=== PATIENT | female | born 1940 | race Caucasian/White ===

== ENCOUNTER 2016-10-14 07:29 | Inpatient (IN) | payer MEDICARE, BC ==
[2016-10-14] MEDS ORDERED: NORMAL SALINE 1000 ML 1,000 ML IV ONE ×2 (07:49→10:56)
[2016-10-14] MEDS ORDERED: IPRATROPIUM/ALBUTEROL 0.5-2.5 MG/3 ML AMPUL NEB ONE (08:37)
[2016-10-14] MEDS ORDERED: ACETAMINOPHEN 325 MG TABLET PO ONE (08:37)
[2016-10-14 08:58] LABS: HEMATOCRIT 36.3 % (36.0-47.0); HEMOGLOBIN 11.8 g/dL (12.0-15.5); HGB HCT DIFFERENCE -0.9; MEAN CORPUSCULAR HEMOGLOBIN 31.9 pg (27.0-33.4); MEAN CORPUSCULAR HGB CONC 32.6 g/dL (32.0-36.0); MEAN CORPUSCULAR VOLUME 98 fl (80-97); RED BLOOD COUNT 3.71 10^6/uL (3.72-5.28); RED CELL DISTRIBUTION WIDTH 14.2 % (11.5-14.0); WHITE BLOOD COUNT 10.7 10^3/uL (4.0-10.5)
[2016-10-14 09:01] LABS: PROTHROMBIN TIME 11.8 SEC (11.4-15.4)
[2016-10-14 09:23] LABS: ALANINE AMINOTRANSFERASE 24 U/L (9-52); ALBUMIN 3.6 g/dL (3.5-5.0); ALKALINE PHOSPHATASE 58 U/L (38-126); ANION GAP 16 (5-19); ASPARTATE AMINO TRANSFERASE 26 U/L (14-36); BILIRUBIN,TOTAL 0.3 mg/dL (0.2-1.3); BLOOD UREA NITROGEN 29 mg/dL (7-20); CALCIUM 9.3 mg/dL (8.4-10.2); CARBON DIOXIDE 28 mmol/L (22-30); CHLORIDE 98 mmol/L (98-107); CREATININE RESULT 1.46 mg/dL (0.52-1.25); GLUCOSE 104 mg/dL (75-110); SODIUM 141.7 mmol/L (137-145); TOTAL PROTEIN 6.6 g/dL (6.3-8.2)
[2016-10-14 09:25] LABS: BAND NEUTROPHILS % (MANUAL) 1 % (3-5); BASOPHILS % (MANUAL) 0 % (0-2); EOSINOPHILS % (MANUAL) 2 % (0-6); LYMPHOCYTES % (MANUAL) 11 % (13-45); RBC MORPHOLOGY COMMENT NORMO-CYTIC/CHROMIC; TOTAL CELLS COUNTED 100
[2016-10-14] MEDS: NORMAL SALINE 1000 ML 1,000 ML IV PRN ×2 (09:46→10:59)
[2016-10-14 10:00] LABS: VENOUS BLOOD BASE EXCESS 1.9 mmol/L; VENOUS BLOOD PCO2 51.3 mmHg (35-63); VENOUS BLOOD PH 7.36 (7.30-7.42)
[2016-10-14 10:09] LABS: LIPASE 163.2 U/L (23-300); MAGNESIUM 1.4 mg/dL (1.6-2.3)
[2016-10-14] MEDS ORDERED: CEFTRIAXONE 1 GM/D5W RTU 50 ML IV ONE (10:15)
[2016-10-14 10:27] LABS: APPEARANCE,URINE CLEAR; BILIRUBIN,URINE NEGATIVE (NEGATIVE); GLUCOSE, URINE NEGATIVE (NEGATIVE); KETONES,URINE NEGATIVE (NEGATIVE); LEUKOCYTE ESTERASE,URINE NEGATIVE (NEGATIVE); NITRITE,URINE NEGATIVE (NEGATIVE); PROTEIN,URINE NEGATIVE (NEGATIVE); URINE SPECIFIC GRAVITY 1.011; UROBILINOGEN,URINE NEGATIVE mg/dL (<2.0)
[2016-10-14] MEDS ORDERED: MAGNESIUM SULFATE/D5W 100 ML IV ONE (10:56)
--- NOTE | 2016-10-14 10:59 | ER Document Report ---
ED General - General Chief Complaint: Fever Stated Complaint: FEVER - HPI Patient complains to provider of: fever Notes: Patient presents today for a three-day history of fever feeling unwell cautions of breath. Patient has a history of RA states she is on immunosuppressive medication and steroids. Patient states she has continued her medication the recent antibiotics recent travel. Patient states cough nonproductive no recent antibiotics no dysuria no abdominal pain no chest pain. - Related Data Allergies/Adverse Reactions: codeine Allergy (Verified 10/14/16 07:46) meperidine [From Demerol] Allergy (Verified 10/14/16 07:41) Home Medications: Current Home Medications Alprazolam [Xanax 0.25 mg Tablet] 0.25 mg PO Q8HP PRN 10/14/16 [History] Ascorbic Acid [Vitamin C] 1,000 mg PO DAILY 10/14/16 [History] Calcium Carbonate/Vitamin D3 [Calcium 600-Vit D3 800 Tablet] 1 tab PO DAILY [History] Chlorthalidone [Chlorthalidone 25 mg Tablet] 0.5 tab PO DAILY 10/14/16 [History] Cholecalciferol (Vitamin D3) [Vitamin D3] 1 cap PO DAILY 10/14/16 [History] Gabapentin [Neurontin] 600 mg PO BID 10/14/16 [History] Lisinopril [Prinivil] 20 mg PO DAILY 10/14/16 [History] Prednisone 5 mg PO BID 10/14/16 [History] Simvastatin [Zocor 10 mg Tablet] 10 mg PO QHS 10/14/16 [History] Vit A/C/E AC/Znox/Cupric Oxide [Eye Vitamin-Minerals Tablet] 1 tab PO DAILY [History] Past Medical History - Social History Smoking Status: Unknown if Ever Smoked Family History: Reviewed & Not Pertinent - Past Medical History Cardiac Medical History: Reports: Hx Hypercholesterolemia, Hx Hypertension Past Surgical History: Reports: Hx Abdominal Surgery, Hx Hysterectomy Review of Systems - Review of Systems Constitutional: Fever EENT: No symptoms reported Cardiovascular: No symptoms reported Respiratory: Cough Gastrointestinal: No symptoms reported Genitourinary: No symptoms reported Female Genitourinary: No symptoms reported Musculoskeletal: No symptoms reported Skin: No symptoms reported Hematologic/Lymphatic: No symptoms reported Neurological/Psychological: No symptoms reported -: Yes All other systems reviewed and negative Physical Exam - Vital signs Vitals: Temp Pulse BP Pulse Ox 102.7 F H 105 H 123/47 L 96 10/14/16 07:38 10/14/16 07:38 10/14/16 07:38 10/14/16 07:38 Interpretation: Hypotensive, Hypoxic, Febrile - General General appearance: Appears well, Alert - HEENT Head: Normocephalic, Atraumatic Eyes: Normal Pupils: PERRL - Respiratory Respiratory status: No respiratory distress Chest status: Nontender Breath sounds: Rhonchi, Wheezing Chest palpation: Normal - Cardiovascular Rhythm: Regular Heart sounds: Normal auscultation Murmur: No - Abdominal Inspection: Normal Distension: No distension Bowel sounds: Normal Tenderness: Nontender Organomegaly: No organomegaly - Back Back: Normal, Nontender - Extremities General upper extremity: Normal inspection, Nontender, Normal color, Normal ROM , Normal temperature General lower extremity: Normal inspection, Nontender, Normal color, Normal ROM , Normal temperature, Normal weight bearing. No: Richardson's sign - Neurological Neuro grossly intact: Yes Cognition: Normal Orientation: AAOx4 [place] Coma Scale Eye Opening: Spontaneous [place] Coma Scale Verbal: Oriented [place] Coma Scale Motor: Obeys Commands [place] Coma Scale Total: 15 Speech: Normal Motor strength normal: LUE, RUE, LLE, RLE Sensory: Normal - Psychological Associated symptoms: Normal affect, Normal mood - Skin Skin Temperature: Warm Skin Moisture: Dry Skin Color: Normal Course - Re-evaluation Re-evalutation: 10/14/16 15:00 Patient presents with fever patient does have a bandemia. Patient was given a dose of Rocephin for anabolic coverage initially. Lactic acid also elevated chest x-ray is clear signs UTI or influenza. Abdomen soft nontender. At this time will continue with antibiotic treatment aggressive fluid resuscitation. Patient's blood pressure did improve with resuscitation. Discussed with hospitalist will admit the patient for further evaluation - Vital Signs Vital signs: Temp Pulse Resp BP Pulse Ox 98.1 F 99 24 H 110/56 L 96 10/14/16 14:10 10/14/16 14:10 10/14/16 14:10 10/14/16 14:10 10/14/16 14:10 - Laboratory Result Diagrams: 10/14/16 08:28 10/14/16 08:28 Laboratory results interpreted by me: 02/10/14/16 10/14/16 08:28 08:28 08:28 WBC 10.7 H RBC 3.71 L Hgb 11.8 L MCV 98 H RDW 14.2 H Band Neutrophils % 1 L Lymphocytes % (Manual) 11 L Metamyelocytes % 2 H Abs Neuts (Manual) 8.5 H BUN 29 H Creatinine 1.46 H Est GFR ( Amer) 42 L Est GFR (Non-Af Amer) 35 L Lactic Acid 3.2 H Magnesium Urine Ascorbic Acid 10/14/16 10/14/16 08:28 10:03 WBC RBC Hgb MCV RDW Band Neutrophils % Lymphocytes % (Manual) Metamyelocytes % Abs Neuts (Manual) BUN Creatinine Est GFR ( Amer) Est GFR (Non-Af Amer) Lactic Acid Magnesium 1.4 L Urine Ascorbic Acid 20 H Critical Care Note - Critical Care Note Total time excluding time spent on procedures (mins): 35 Comments: Patient coming in for fever with sirs criteria multiple evaluations due to hypotension Discharge - Discharge Clinical Impression: SIRS (systemic inflammatory response syndrome), Renal insufficiency Fever Qualifiers: Fever type: unspecified Qualified Code(s): R50.9 - Fever, unspecified Hypotension Qualifiers: Hypotension type: unspecified hypotension type Qualified Code(s): I95.9 - Hypotension, unspecified Disposition: ADMITTED INPATIENT Admitting Provider: [place] [facility] Unit Admitted: [facility]
[2016-10-14] MEDS ORDERED: RINGERS SOLUTION,LACTATED 1,000 ML IV PRN (12:08)
[2016-10-14] MEDS ORDERED: CEFEPIME 2 GM/D5W RTU 50 ML IV SCH (12:15)
[2016-10-14] MEDS ORDERED: LEVOFLOXACIN 750 MG/D5W RTU 150 ML IV SCH (13:00)
[2016-10-14] MEDS ORDERED: ENOXAPARIN SODIUM INJ 30 MG/0.3 ML DISP.SYRIN SUBCUT ONE (13:30)
[2016-10-14] MEDS ORDERED: LEVOFLOXACIN 500 MG/D5W RTU 500 MG/100 ML RTUPB IV ONE (14:00)
[2016-10-14] MEDS: HYDROCORTISONE SOD SUCCINATE INJ/PF 100 MG/2 ML SDV IV SCH ×2 (15:23→21:19)
--- NOTE | 2016-10-14 16:37 | PDOC H&P ---
History of Present Illness Admission Date/PCP: 10/14/16 12:08 KEVIN GRIMALDO MD Patient complains of: Weakness History of Present Illness: PARDEEP FOSTER is a 76 year old female presents from home with sudden onset weakness approximately 12 hours ago. She says it all started with a sore throat after visiting with her grandkids for the past week noting that they seem to be suffering from some upper respiratory infection with "snotty noses and sore throats". She felt fine until this morning with sudden weakness "like a kitten, I couldn't get out of bed", then the sore throat followed by a dry hacking cough followed by nausea and vomiting followed by diarrhea. She denies subjective fevers at home but was febrile in the emergency department at 102.7. Evaluation in the emergency department has findings consistent with a pneumonia and sepsis with shock we were asked to admit for further evaluation and management. Initial systolic blood pressure initially in the 80s that required 3+ liters of normal saline to maintain a mean arterial pressure greater than or equal to 65, and she was tachycardic. She reports previous hospitalizations for pneumonia requiring brief stay in intensive care and broad- spectrum antibiotics, she does not relate a history of pseudomonas or MRSA. She is on immunosuppressive therapy for rheumatoid arthritis and therefore is at grave risk for gram-negative organisms. 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 Musculoskeltal Medical History: Reports: Other - Rheumatoid arthritis on injectable tumor necrosis factor and chronic steroid therapy Past Surgical History Past Surgical History: Reports: Appendectomy, Hysterectomy Social History Smoking Status: Unknown if Ever Smoked Frequency of Alcohol Use: None Hx Recreational Drug Use: No Hx Prescription Drug Abuse: No - Advance Directive Resuscitation Status: Full Code Family History Family History: Reviewed & Not Pertinent Parental Family History Reviewed: Yes Children Family History Reviewed: Yes Sibling(s) Family History Reviewed.: Yes Medication/Allergy Home Medications: Alprazolam [Xanax 0.25 mg Tablet] 0.25 mg PO Q8HP PRN 10/14/16 Ascorbic Acid [Vitamin C] 1,000 mg PO DAILY 10/14/16 Calcium Carbonate/Vitamin D3 [Calcium 600-Vit D3 800 Tablet] 1 tab PO DAILY Chlorthalidone [Chlorthalidone 25 mg Tablet] 0.5 tab PO DAILY 10/14/16 Cholecalciferol (Vitamin D3) [Vitamin D3] 1 cap PO DAILY 10/14/16 Gabapentin [Neurontin] 600 mg PO BID 10/14/16 Lisinopril [Prinivil] 20 mg PO DAILY 10/14/16 Prednisone 5 mg PO BID 10/14/16 Simvastatin [Zocor 10 mg Tablet] 10 mg PO QHS 10/14/16 Vit A/C/E AC/Znox/Cupric Oxide [Eye Vitamin-Minerals Tablet] 1 tab PO DAILY Allergies/Adverse Reactions: codeine Allergy (Verified 10/14/16 07:46) meperidine [From Demerol] Allergy (Verified 10/14/16 07:41) Review of Systems Constitutional: ABSENT: chills, fever(s), headache(s), weight gain, weight loss Eyes: ABSENT: visual disturbances Ears: ABSENT: hearing changes Nose, Mouth, and Throat: PRESENT: sore throat Cardiovascular: ABSENT: chest pain, dyspnea on exertion, edema, orthropnea, palpitations Respiratory: ABSENT: cough, hemoptysis Gastrointestinal: PRESENT: diarrhea, nausea, vomiting. ABSENT: abdominal pain, constipation, hematemesis, hematochezia Genitourinary: ABSENT: dysuria, hematuria Musculoskeletal: PRESENT: muscle weakness. ABSENT: joint swelling Integumentary: ABSENT: rash, wounds Neurological: ABSENT: abnormal gait, abnormal speech, confusion, dizziness, focal weakness, syncope Psychiatric: ABSENT: anxiety, depression Endocrine: ABSENT: cold intolerance, heat intolerance, polydipsia, polyuria Hematologic/Lymphatic: ABSENT: easy bleeding, easy bruising Physical Exam Vital Signs: Temp Pulse Resp BP Pulse Ox 98.1 F 99 26 H 111/59 L 96 10/14/16 14:10 10/14/16 14:10 10/14/16 15:28 10/14/16 15:28 10/14/16 14:10 Intake & Output 10/13/16 10/14/16 10/15/16 06:59 06:59 06:59 Output Total 850 Balance -850 Weight 76.6 kg PHYSICAL EXAM GENERAL: NAD, ill-appearing; well developed, well nourished, pale; no obese; alert and oriented to person, place, time, situation HEENT: normocephalic, atraumatic; EOMI, PERRLA, bilateral conjunctival injection, no scleral icterus; oral mucosa dry; neck supple, no LAD, normal ROM RESPIRATORY: no accessory muscle use, mild increased WOB, good air entry bilaterally; no wheezes, rhonchi; bilateral inspiratory crackles and rales CARDIO: no JVD; RRR; no systolic murmur; no tachycardia VASCULAR: no carotid bruit; no abdominal bruit; no pallor; 2+ radial, DP pulse ; normal capillary refill GI: soft; nondistended; normal bowel sounds; no rebound, rigidity, guarding; nontender NEURO: normal patella reflexes; normal sensation; no dysarthria; no nystagmus; tongue protrudes midline; MSK: 4/5 strength; normal ROM hips; ambulatory with assistance; no tenderness EXTREMITIES: no calf tender; no palpable cords in calf; no clubbing, cyanosis , pedal edema PSYCH: normal affect, normal mood SKIN: Cool; moist; no petechiae; no telengectasias; no jaundice; no rash Results Laboratory Results: 10/14/16 12:52 Lactic Acid 2.7 H Labs reviewed, CBC shows mild macrocytic anemia, WBCs just outside the normal range at 10.7 with 1% bands, chemistries show elevated BUN/creatinine of 29 and 1.5 otherwise unremarkable, lactic acid is elevated, magnesium low at 1.4, LFTs are good lipase is normal. Urinalysis unremarkable. Influenza A and B screen negative. Sputum, urine, blood cultures all pending. Impressions: Chest X-Ray 10/14/16 07:48 IMPRESSION: NO SIGNIFICANT RADIOGRAPHIC FINDING IN THE CHEST. Status: Image reviewed by me - Agree with radiology Assessment & Plan - Diagnosis (1) Community acquired pneumonia Is this a current diagnosis for this admission?: YesPlan: Due to her immunocompromised status she is at risk for gram-negative organisms. She will need to be admitted to the ICU and started on broad-spectrum antibiotics including cefepime and Levaquin to cover for Pseudomonas as well as usual community acquired pathogens. Nebulizers and supplemental O2 as needed. Follow up on culture sent from the ER to narrow our antibiotic coverage accordingly. (2) Septic shock Is this a current diagnosis for this admission?: YesPlan: Gen. surgery consulted for central line placement in the event she were to decompensate further and require vasopressors, CVP monitoring, etc. otherwise continue aggressive fluid resuscitation and monitor volume status. (3) Rheumatoid arthritis Is this a current diagnosis for this admission?: YesPlan: Stable. She is on chronic steroid therapy and therefore at risk for secondary adrenal suppression, will be placed on stress dose steroids. (4) Immunosuppressed status Is this a current diagnosis for this admission?: YesPlan: As noted above. (5) Acute renal failure Qualifiers: Acute renal failure type: unspecified Qualified Code(s): N17.9 - Acute kidney failure, unspecified Is this a current diagnosis for this admission?: YesPlan: Likely prerenal and/or related to the sepsis, possible ATN. We'll rehydrate and follow urine output as well as serum creatinine. (6) History of Clostridium difficile Is this a current diagnosis for this admission?: YesPlan: Since stool for C. difficile toxin. Monitor for diarrhea while on broad- spectrum antibiotics. proPhylaxis with lactobacillus. (7) Hypomagnesemia Is this a current diagnosis for this admission?: YesPlan: Replenish and monitor. - Time Time Spent: Greater than 70 Minutes Medications reviewed and adjusted accordingly: Yes Anticipated discharge: Home Within: Other - Septic shock carries a high morbidity mortality baking disposition timeline difficult to anticipate
--- NOTE | 2016-10-14 17:39 | EKG REPORT ---
SEVERITY:- OTHERWISE NORMAL ECG - SINUS TACHYCARDIA : Confirmed by: Dayan Hamilton MD 14-Oct-2016 17:39:12
[2016-10-14] MEDS: ACETAMINOPHEN 325 MG TABLET PO PRN (18:11)
[2016-10-14] MEDS: LACTOBACILLUS ACIDOPHILUS 250 MG TAB PO SCH (18:12)
[2016-10-14] MEDS: CEFEPIME 1 GM/D5W RTU 1 GM/50 ML RTUPB IV SCH (21:18)
--- NOTE | 2016-10-14 21:18 | OPERATIVE REPORT E ---
Operative Report NAME: PARDEEP FOSTER : 1940 AGE: 76Y DATE OF SURGERY: 10/14/2016 ROOM: 611 OPERATION: Insertion of central venous catheter through the right internal jugular vein under ultrasound guidance. SURGEON: INDIRA WOLF M.D. ESTIMATED BLOOD LOSS: Less than 20 mL. PROCEDURE DESCRIPTION: The patient was placed in the Trendelenburg position. The anterior chest wall of the chest was cleaned and neck was cleaned to a sterile field. Initially the right internal jugular vein was identified by ultrasound and then under ultrasound guidance, the internal jugular vein was accessed by using the Seldinger technique through the needle. A guidewire was passed into the superior vena cava and then tract was dilated and then over the guidewire, a triple lumen catheter was inserted into the superior vena cava with excellent venous flow. All the ports were flushed with heparinized solution and then dressings were applied. Patient tolerated the procedure very well. DICTATING PHYSICIAN: INDIRA WOLF M.D. [id number] PHY#: [id number] ID: [id number] JOB#: [id number] ACCT: [id number] cc:INDIRA WOLF M.D. >
[2016-10-14] MEDS: FAMOTIDINE INJ/PF 20 MG/2 ML SDV IV SCH (21:19)
[2016-10-14] MEDS: GABAPENTIN 300 MG CAPSULE PO SCH (21:19)
[2016-10-14] MEDS: RINGERS SOLUTION,LACTATED 1,000 ML IV PRN (21:20)
[2016-10-14] MEDS: ALPRAZOLAM 0.25 MG TABLET PO PRN (21:20)
[2016-10-14] MEDS: SIMVASTATIN 10 MG TABLET PO SCH (21:20)
[2016-10-15] MEDS: HYDROCORTISONE SOD SUCCINATE INJ/PF 100 MG/2 ML SDV IV SCH ×3 (05:48→21:58)
[2016-10-15] MEDS: RINGERS SOLUTION,LACTATED 1,000 ML IV PRN ×3 (05:48→21:57)
[2016-10-15] MEDS: ACETAMINOPHEN 325 MG TABLET PO PRN ×2 (06:20→21:58)
[2016-10-15 06:26] LABS: ANION GAP 7 (5-19); BLOOD UREA NITROGEN 23 mg/dL (7-20); CALCIUM 7.8 mg/dL (8.4-10.2); CARBON DIOXIDE 25 mmol/L (22-30); CHLORIDE 107 mmol/L (98-107); CREATININE RESULT 1.12 mg/dL (0.52-1.25); GLUCOSE 103 mg/dL (75-110); POTASSIUM 4.5 mmol/L (3.6-5.0); SODIUM 139.1 mmol/L (137-145)
[2016-10-15 06:41] LABS: HEMATOCRIT 28.3 % (36.0-47.0); HGB HCT DIFFERENCE -0.1; MEAN CORPUSCULAR HEMOGLOBIN 32.6 pg (27.0-33.4); MEAN CORPUSCULAR HGB CONC 33.3 g/dL (32.0-36.0); MEAN CORPUSCULAR VOLUME 98 fl (80-97); RED CELL DISTRIBUTION WIDTH 14.7 % (11.5-14.0); WHITE BLOOD COUNT 8.2 10^3/uL (4.0-10.5)
[2016-10-15 06:43] LABS: HEMOGLOBIN 9.4 g/dL (12.0-15.5)
[2016-10-15 07:05] LABS: BASOPHILS % (MANUAL) 0 % (0-2); EOSINOPHILS % (MANUAL) 0 % (0-6); LYMPHOCYTES % (MANUAL) 9 % (13-45); TOTAL CELLS COUNTED 100
[2016-10-15 07:07] LABS: ANISOCYTOSIS SLIGHT; OVALOCYTES 1+; POIKILOCYTOSIS 1+
[2016-10-15] MEDS ORDERED: ENOXAPARIN SODIUM INJ 40 MG/0.4 ML DISP.SYRIN SUBCUT SCH (08:00)
[2016-10-15] MEDS: IPRATROPIUM/ALBUTEROL 0.5-2.5 MG/3 ML AMPUL NEB PRN ×2 (08:29→14:32)
[2016-10-15] MEDS: ENOXAPARIN SODIUM INJ 30 MG/0.3 ML DISP.SYRIN SUBCUT SCH (08:56)
[2016-10-15] MEDS: GABAPENTIN 300 MG CAPSULE PO SCH ×2 (09:26→21:58)
[2016-10-15] MEDS: FAMOTIDINE INJ/PF 20 MG/2 ML SDV IV SCH ×2 (09:26→21:58)
[2016-10-15] MEDS: LACTOBACILLUS ACIDOPHILUS 250 MG TAB PO SCH ×2 (09:27→21:59)
[2016-10-15] MEDS: CEFEPIME 1 GM/D5W RTU 1 GM/50 ML RTUPB IV SCH ×2 (09:27→21:57)
[2016-10-15] MEDS ORDERED: LEVOFLOXACIN 250 MG/D5W RTU 250 MG/50 ML RTUPB IV SCH ×2 (10:00)
--- NOTE | 2016-10-15 11:05 | PDOC PROGRESS REPORT ---
Subjective Progress Note for:: 10/15/16 Subjective:: Reason for visit: Follow-up pneumonia and septic shock Hospital course:PARDEEP FOSTER is a 76 year old female presents from home with sudden onset weakness approximately 12 hours ago. She says it all started with a sore throat after visiting with her grandkids for the past week noting that they seem to be suffering from some upper respiratory infection with "snotty noses and sore throats". She felt fine until this morning with sudden weakness "like a kitten, I couldn't get out of bed", then the sore throat followed by a dry hacking cough followed by nausea and vomiting followed by diarrhea. She denies subjective fevers at home but was febrile in the emergency department at 102.7. Evaluation in the emergency department has findings consistent with a pneumonia and sepsis with shock we were asked to admit for further evaluation and management. Initial systolic blood pressure initially in the 80s that required 3+ liters of normal saline to maintain a mean arterial pressure greater than or equal to 65, and she was tachycardic. She reports previous hospitalizations for pneumonia requiring brief stay in intensive care and broad- spectrum antibiotics, she does not relate a history of pseudomonas or MRSA. She is on immunosuppressive therapy for rheumatoid arthritis and therefore is at grave risk for gram-negative organisms. Patient was admitted to the ICU and started on broad-spectrum antibiotics, surgery was consulted and successfully placed a right internal jugular central venous catheter. Her hypotension responded to aggressive IV fluid resuscitation and she avoided vasopressors. She is also maintaining adequate oxygenation on room air. Subjective: Overall she feels significantly improved from presentation though still very weak. She does not endorse chest pain, vomiting, diarrhea or chills. She has not had recurrence of fever since her time in the emergency department with a MAXIMUM TEMPERATURE of 100.0. She still complains of sore throat, cough largely nonproductive of phlegm, arthralgias and myalgias, nausea without vomiting. ROS: per HPI plus a total of 10 systems reviewed, pertinent positives and negatives noted above, remaining systems negative. Physical Exam Vital Signs: Temp Pulse Resp BP Pulse Ox 98.6 F 93 25 H 107/60 98 10/15/16 07:56 10/15/16 07:56 10/15/16 07:56 10/15/16 07:56 10/15/16 07:56 Intake & Output 10/14/16 10/15/16 10/16/16 06:59 06:59 06:59 Intake Total 3847 Output Total 3025 100 Balance 822 -100 Weight 76.6 kg PHYSICAL EXAM GENERAL: NAD, ill-appearing; well developed, well nourished, pale; no obese; alert and oriented to person, place, time, situation HEENT: normocephalic, atraumatic; bilateral conjunctival injection, no scleral icterus; oral mucosa dry; neck supple, no LAD, normal ROM RESPIRATORY: no accessory muscle use, no increased WOB, good air entry bilaterally; no wheezes, rhonchi; persistent bilateral inspiratory crackles and rales CARDIO: no JVD; irregular on the monitor with what appears to be underlying sinus rhythm and frequent PACs; no systolic murmur; borderline tachycardia VASCULAR: no pallor; 2+ radial, DP pulse; normal capillary refill GI: soft; nondistended; normal bowel sounds; no rebound, rigidity, guarding; nontender NEURO: normal patella reflexes; normal sensation; no dysarthria; no nystagmus; tongue protrudes midline; MSK: 4/5 strength; normal ROM hips; ambulatory with assistance; no tenderness EXTREMITIES: no calf tender; no palpable cords in calf; no clubbing, cyanosis , pedal edema PSYCH: normal affect, normal mood SKIN: Cool; moist; no petechiae; no telengectasias; no jaundice; no rash Results Laboratory Results: 10/15/16 05:45 10/15/16 05:45 10/14/16 10/14/16 10/14/16 12:52 16:55 16:55 WBC RBC Hgb Hct MCV MCH MCHC RDW Plt Count Seg Neutrophils % Lymphocytes % Monocytes % Eosinophils % Basophils % Absolute Neutrophils Absolute Lymphocytes Absolute Monocytes Absolute Eosinophils Absolute Basophils Sodium Potassium Chloride Carbon Dioxide Anion Gap BUN Creatinine Est GFR ( Amer) Est GFR (Non-Af Amer) Glucose Lactic Acid 2.7 H Calcium Stool Occult Blood NEGATIVE Stool for White Cells NO WBCs SEEN 10/15/16 10/15/16 05:45 05:45 WBC 8.2 RBC 2.90 L Hgb 9.4 L D Hct 28.3 L MCV 98 H MCH 32.6 MCHC 33.3 RDW 14.7 H Plt Count 208 Seg Neutrophils % Not Reportable Lymphocytes % Not Reportable Monocytes % Not Reportable Eosinophils % Not Reportable Basophils % Not Reportable Absolute Neutrophils Not Reportable Absolute Lymphocytes Not Reportable Absolute Monocytes Not Reportable Absolute Eosinophils Not Reportable Absolute Basophils Not Reportable Sodium 139.1 Potassium 4.5 Chloride 107 Carbon Dioxide 25 Anion Gap 7 BUN 23 H Creatinine 1.12 Est GFR ( Amer) 57 L Est GFR (Non-Af Amer) 47 L Glucose 103 Lactic Acid Calcium 7.8 L Stool Occult Blood Stool for White Cells Labs are reviewed and are reassuring Impressions: Chest X-Ray 10/14/16 19:07 IMPRESSION: Good position of central line. No pneumothorax. Status: Imported from PACS - Report reviewed, successful placement of right internal jugular central without complication Assessment & Plan - Diagnosis (1) Community acquired pneumonia Is this a current diagnosis for this admission?: YesPlan: Due to her immunocompromised status she is at risk for gram-negative organisms. She will need to be started on broad-spectrum antibiotics including cefepime and Levaquin to cover for Pseudomonas as well as usual community acquired pathogens. Nebulizers and supplemental O2 as needed. Follow up on culture sent from the ER to narrow our antibiotic coverage accordingly. Stable for downgrade to telemetry bed. (2) Septic shock Is this a current diagnosis for this admission?: YesPlan: Resolved with aggressive IV fluid resuscitation. Gen. surgery consulted for successful central line placement to be done. (3) Rheumatoid arthritis Is this a current diagnosis for this admission?: YesPlan: Stable. She is on chronic steroid therapy and therefore at risk for secondary adrenal suppression, continue stress dose steroids for the first 48 hours of admission and then taper down based on clinical course. (4) Immunosuppressed status Is this a current diagnosis for this admission?: YesPlan: As noted above. (5) Acute renal failure Qualifiers: Acute renal failure type: unspecified Qualified Code(s): N17.9 - Acute kidney failure, unspecified Is this a current diagnosis for this admission?: YesPlan: Improved and likely back to baseline Likely prerenal and/or related to the sepsis, possible ATN. Continue to monitor. Good urine output. (6) History of Clostridium difficile Is this a current diagnosis for this admission?: YesPlan: stool negative for C. difficile toxin. Monitor for diarrhea while on broad- spectrum antibiotics. proPhylaxis with lactobacillus. (7) Hypomagnesemia Is this a current diagnosis for this admission?: YesPlan: Replace and continue to monitor. (8) Macrocytic anemia Is this a current diagnosis for this admission?: YesPlan: She has history of chronic anemia dating back to 2010. Worse with dilution and acute illness. Performed usual anemia evaluation. Continue to monitor H&H. No evidence for acute blood loss and stool has already screened negative for occult blood. - Time Time Spent with patient: 25-34 minutes Medications reviewed and adjusted accordingly: Yes Anticipated discharge: Home Within: within 72 hours
[2016-10-15] MEDS: SIMVASTATIN 10 MG TABLET PO SCH (21:58)
[2016-10-15] MEDS: ALPRAZOLAM 0.25 MG TABLET PO PRN (21:59)
[2016-10-16] MEDS: HYDROCORTISONE SOD SUCCINATE INJ/PF 100 MG/2 ML SDV IV SCH ×3 (05:35→21:21)
[2016-10-16 07:22] LABS: ANION GAP 9 (5-19); BLOOD UREA NITROGEN 22 mg/dL (7-20); CALCIUM 8.2 mg/dL (8.4-10.2); CARBON DIOXIDE 26 mmol/L (22-30); CHLORIDE 104 mmol/L (98-107); CREATININE RESULT 1.17 mg/dL (0.52-1.25); GLUCOSE 112 mg/dL (75-110); MAGNESIUM 1.6 mg/dL (1.6-2.3); POTASSIUM 4.1 mmol/L (3.6-5.0); SODIUM 139.4 mmol/L (137-145)
[2016-10-16 07:25] LABS: ABSOLUTE LYMPHOCYTES (AUTO) 1.3 10^3/uL (0.5-4.7); ABSOLUTE MONOCYTES (AUTO) 0.5 10^3/uL (0.1-1.4); ABSOLUTE NEUT (AUTO) 4.9 10^3/uL (1.7-8.2); BASOPHILS % (AUTO) 0.4 % (0-2); HEMATOCRIT 28.7 % (36.0-47.0); HEMOGLOBIN 9.6 g/dL (12.0-15.5); HGB HCT DIFFERENCE 0.1; MEAN CORPUSCULAR HEMOGLOBIN 32.4 pg (27.0-33.4); MEAN CORPUSCULAR HGB CONC 33.5 g/dL (32.0-36.0); MEAN CORPUSCULAR VOLUME 97 fl (80-97); MONOCYTES % (AUTO) 7.3 % (3-13); RED BLOOD COUNT 2.97 10^6/uL (3.72-5.28); RED CELL DISTRIBUTION WIDTH 14.9 % (11.5-14.0); SEGMENTED NEUTROPHILS % (AUTO) 73.3 % (42-78); WHITE BLOOD COUNT 6.7 10^3/uL (4.0-10.5)
[2016-10-16] MEDS: ENOXAPARIN SODIUM INJ 30 MG/0.3 ML DISP.SYRIN SUBCUT SCH (07:48)
[2016-10-16] MEDS ORDERED: LEVOFLOXACIN 250 MG/D5W RTU 250 MG/50 ML RTUPB IV SCH (10:00)
[2016-10-16] MEDS: CEFEPIME 1 GM/D5W RTU 1 GM/50 ML RTUPB IV SCH (10:42)
[2016-10-16] MEDS: FAMOTIDINE INJ/PF 20 MG/2 ML SDV IV SCH ×2 (10:43→21:20)
[2016-10-16] MEDS: GABAPENTIN 300 MG CAPSULE PO SCH ×2 (10:44→21:20)
[2016-10-16] MEDS: LACTOBACILLUS ACIDOPHILUS 250 MG TAB PO SCH ×2 (10:44→17:43)
[2016-10-16] MEDS: LEVOFLOXACIN 250 MG/D5W RTU 250 MG/50 ML RTUPB IV SCH (10:45)
[2016-10-16] MEDS: RINGERS SOLUTION,LACTATED 1,000 ML IV PRN (14:57)
--- NOTE | 2016-10-16 17:45 | PDOC PROGRESS REPORT ---
Subjective Progress Note for:: 10/16/16 Subjective:: Patient states she's doing a lot better her breathing is better ; she is able to ambulate to the bathroom Her blood pressure stable She has no chest pain no abdominal pain nausea vomiting Physical Exam Vital Signs: Temp Pulse Resp BP Pulse Ox 98.3 F 89 16 139/62 H 96 10/16/16 15:19 10/16/16 15:45 10/16/16 15:45 10/16/16 15:19 10/16/16 15:45 Intake & Output 10/15/16 10/16/16 10/17/16 00:59 00:59 00:59 Intake Total 2155 4 1906 Output Total 2250 3955 1950 Balance -95 -192 -44 Weight 76.6 kg 76.6 kg General appearance: PRESENT: no acute distress, well-developed, well-nourished Head exam: PRESENT: atraumatic, normocephalic Eye exam: PRESENT: conjunctiva pink, EOMI, PERRLA. ABSENT: scleral icterus Ear exam: PRESENT: normal external ear exam Mouth exam: PRESENT: moist, tongue midline Neck exam: ABSENT: carotid bruit, JVD, lymphadenopathy, thyromegaly Respiratory exam: PRESENT: decreased breath sounds, wheezes - Few expiratory wheezes bilaterally. ABSENT: rales, rhonchi Cardiovascular exam: PRESENT: RRR. ABSENT: diastolic murmur, rubs, systolic murmur Pulses: PRESENT: normal dorsalis pedis pul Vascular exam: PRESENT: normal capillary refill GI/Abdominal exam: PRESENT: normal bowel sounds, soft. ABSENT: distended, guarding, mass, organolmegaly, rebound, tenderness Rectal exam: PRESENT: deferred Extremities exam: PRESENT: full ROM. ABSENT: calf tenderness, clubbing, pedal edema Neurological exam: PRESENT: alert, awake, oriented to person, oriented to place , oriented to time, oriented to situation, CN II-XII grossly intact. ABSENT: motor sensory deficit Psychiatric exam: PRESENT: appropriate affect, normal mood. ABSENT: homicidal ideation, suicidal ideation Skin exam: PRESENT: dry, intact, warm. ABSENT: cyanosis, rash Results Laboratory Results: 10/16/16 05:45 10/16/16 05:45 10/16/16 10/16/16 05:45 05:45 WBC 6.7 RBC 2.97 L Hgb 9.6 L Hct 28.7 L MCV 97 MCH 32.4 MCHC 33.5 RDW 14.9 H Plt Count 204 Seg Neutrophils % 73.3 Lymphocytes % 19.0 Monocytes % 7.3 Eosinophils % 0.0 Basophils % 0.4 Absolute Neutrophils 4.9 Absolute Lymphocytes 1.3 Absolute Monocytes 0.5 Absolute Eosinophils 0.0 Absolute Basophils 0.0 Retic Count (auto) 1.15 Absolute Retic 0.034 Sodium 139.4 Potassium 4.1 Chloride 104 Carbon Dioxide 26 Anion Gap 9 BUN 22 H Creatinine 1.17 Est GFR ( Amer) 54 L Est GFR (Non-Af Amer) 45 L Glucose 112 H Calcium 8.2 L Magnesium 1.6 Iron 25.1 L TIBC 233 L % Saturation 11 Ferritin 150.00 Vitamin B12 210.0 L Folate 17.90 10/14/16 16:55 Stool - Stool - Final 10/14/16 16:55 Stool - Stool Stool Culture - Final NO SALMONELLA, SHIGELLA, CAMPYLOBACTER, OR E.COLI 0157 RECOVERED. NEGATIVE FOR SHIGA TOXINS 1&2. 10/14/16 15:45 Sputum Gram Stain - Final 10/14/16 15:45 Sputum Sputum Culture - Final NORMAL TYSON 10/16/16 05:45 BUN 22 H Creatinine 1.17 Est GFR (Non-Af Amer) 45 L Iron 25.1 L TIBC 233 L Vitamin B12 210.0 L Folate 17.90 Impressions: Chest X-Ray 10/14/16 19:07 IMPRESSION: Good position of central line. No pneumothorax. Assessment & Plan - Diagnosis (1) Anemia Qualifiers: Anemia type: B12 deficiency Vitamin B12 deficiency anemia type: other B12 deficiency Qualified Code(s): D51.8 - Other vitamin B12 deficiency anemias Is this a current diagnosis for this admission?: YesPlan: This is an acute on chronic anemia secondary to iron deficiency and vitamin B- 12 deficiency We will replace both (2) Acute renal failure Qualifiers: Acute renal failure type: unspecified Qualified Code(s): N17.9 - Acute kidney failure, unspecified Is this a current diagnosis for this admission?: YesPlan: Secondary to sepsis and dehydration Has improved wheezes rehydration Patient's GFR is 40-45 Continue IV fluids for another 24 hours (3) Community acquired pneumonia Is this a current diagnosis for this admission?: YesPlan: Continue the present management; patient is currently on cefepime and Levaquin (4) Hypotension Qualifiers: Hypotension type: unspecified hypotension type Qualified Code(s): I95.9 - Hypotension, unspecified Is this a current diagnosis for this admission?: YesPlan: Secondary to early sepsis and dehydration has improved We will decrease hydrocortisone - Time Time Spent with patient: We will keep the patient in the hospital for another 24-48 hrs. until clinically improved Time Spent with patient: 25-34 minutes
[2016-10-16] MEDS ORDERED: CYANOCOBALAMIN (VITAMIN B-12) INJ 1000 MCG/1 ML VIAL IM ONE (19:30)
[2016-10-16] MEDS: FERROUS SULFATE 325 MG TABLET PO SCH (21:20)
[2016-10-16] MEDS: SIMVASTATIN 10 MG TABLET PO SCH (21:21)
[2016-10-16] MEDS: ACETAMINOPHEN 325 MG TABLET PO PRN (21:21)
[2016-10-16] MEDS: ALPRAZOLAM 0.25 MG TABLET PO PRN (21:21)
[2016-10-17] MEDS: HYDROCORTISONE SOD SUCCINATE INJ/PF 100 MG/2 ML SDV IV SCH ×2 (05:30→22:33)
[2016-10-17 06:30] LABS: ABSOLUTE LYMPHOCYTES (AUTO) 2.2 10^3/uL (0.5-4.7); ABSOLUTE MONOCYTES (AUTO) 0.6 10^3/uL (0.1-1.4); ABSOLUTE NEUT (AUTO) 5.3 10^3/uL (1.7-8.2); BASOPHILS % (AUTO) 0.2 % (0-2); HEMATOCRIT 29.4 % (36.0-47.0); HEMOGLOBIN 9.8 g/dL (12.0-15.5); LYMPHOCYTES % (AUTO) 26.6 % (13-45); MEAN CORPUSCULAR HEMOGLOBIN 31.8 pg (27.0-33.4); MEAN CORPUSCULAR HGB CONC 33.3 g/dL (32.0-36.0); MEAN CORPUSCULAR VOLUME 96 fl (80-97); MONOCYTES % (AUTO) 7.2 % (3-13); RED BLOOD COUNT 3.08 10^6/uL (3.72-5.28); RED CELL DISTRIBUTION WIDTH 14.6 % (11.5-14.0); WHITE BLOOD COUNT 8.1 10^3/uL (4.0-10.5)
[2016-10-17 06:31] LABS: ANION GAP 10 (5-19); BLOOD UREA NITROGEN 25 mg/dL (7-20); CALCIUM 8.4 mg/dL (8.4-10.2); CARBON DIOXIDE 30 mmol/L (22-30); CHLORIDE 102 mmol/L (98-107); GLUCOSE 88 mg/dL (75-110); POTASSIUM 3.4 mmol/L (3.6-5.0); SODIUM 141.8 mmol/L (137-145)
[2016-10-17] MEDS: ENOXAPARIN SODIUM INJ 30 MG/0.3 ML DISP.SYRIN SUBCUT SCH (07:54)
[2016-10-17] MEDS: CEFEPIME 1 GM/D5W RTU 1 GM/50 ML RTUPB IV SCH (09:45)
[2016-10-17] MEDS: GABAPENTIN 300 MG CAPSULE PO SCH ×2 (09:46→22:34)
[2016-10-17] MEDS: LACTOBACILLUS ACIDOPHILUS 250 MG TAB PO SCH ×2 (09:46→18:06)
[2016-10-17] MEDS: FERROUS SULFATE 325 MG TABLET PO SCH ×2 (09:47→18:06)
[2016-10-17] MEDS: FAMOTIDINE INJ/PF 20 MG/2 ML SDV IV SCH ×2 (10:35→22:33)
[2016-10-17] MEDS: LEVOFLOXACIN 250 MG/D5W RTU 250 MG/50 ML RTUPB IV SCH (10:35)
[2016-10-17] MEDS: CYANOCOBALAMIN (VITAMIN B-12) INJ 1000 MCG/1 ML VIAL IM SCH (12:05)
[2016-10-17] MEDS ORDERED: POTASSIUM CHLORIDE 10 MEQ TABLET.SA PO ONE (14:30)
[2016-10-17] MEDS ORDERED: FUROSEMIDE INJ/PF 20 MG/2 ML SDV IV ONE (14:30)
--- NOTE | 2016-10-17 16:49 | PDOC PROGRESS REPORT ---
Subjective Progress Note for:: 10/17/16 Subjective:: Patient was somewhat short of breath today and is wheezing No chest pain no palpitations; no fever no chills No abdominal pain nausea vomiting Physical Exam Vital Signs: Temp Pulse Resp BP Pulse Ox 98.1 F 60 20 147/65 H 98 10/17/16 16:00 10/17/16 16:00 10/17/16 16:00 10/17/16 16:00 10/17/16 16:00 Intake & Output 10/16/16 10/17/16 10/18/16 00:59 00:59 00:59 Intake Total 2034 2973 600 Output Total 3955 3550 800 Balance -1921 -577 -200 Weight 76.6 kg 76.6 kg General appearance: PRESENT: no acute distress, well-nourished Head exam: PRESENT: atraumatic, normocephalic Ear exam: PRESENT: normal external ear exam Neck exam: ABSENT: carotid bruit, JVD, lymphadenopathy, thyromegaly Respiratory exam: PRESENT: decreased breath sounds, wheezes Cardiovascular exam: PRESENT: RRR. ABSENT: diastolic murmur, rubs, systolic murmur GI/Abdominal exam: PRESENT: normal bowel sounds, soft. ABSENT: distended, guarding, mass, organolmegaly, rebound, tenderness Extremities exam: PRESENT: full ROM. ABSENT: calf tenderness, clubbing, pedal edema Neurological exam: PRESENT: alert, awake, oriented to person, oriented to place , oriented to time, oriented to situation, CN II-XII grossly intact. ABSENT: motor sensory deficit Results Laboratory Results: 10/17/16 05:45 10/17/16 05:45 10/16/16 10/17/16 10/17/16 05:45 05:45 05:45 WBC 8.1 RBC 3.08 L Hgb 9.8 L Hct 29.4 L MCV 96 MCH 31.8 MCHC 33.3 RDW 14.6 H Plt Count 213 Seg Neutrophils % 66.0 Lymphocytes % 26.6 Monocytes % 7.2 Eosinophils % 0.0 Basophils % 0.2 Absolute Neutrophils 5.3 Absolute Lymphocytes 2.2 Absolute Monocytes 0.6 Absolute Eosinophils 0.0 Absolute Basophils 0.0 Sodium 141.8 Potassium 3.4 L Chloride 102 Carbon Dioxide 30 Anion Gap 10 BUN 25 H Creatinine 1.20 Est GFR ( Amer) 53 L Est GFR (Non-Af Amer) 44 L Glucose 88 Calcium 8.4 Transferrin 165 L 10/14/16 16:55 Stool - Stool - Final 10/14/16 16:55 Stool - Stool Stool Culture - Final NO SALMONELLA, SHIGELLA, CAMPYLOBACTER, OR E.COLI 0157 RECOVERED. NEGATIVE FOR SHIGA TOXINS 1&2. Impressions: Chest X-Ray 10/14/16 19:07 IMPRESSION: Good position of central line. No pneumothorax. Assessment & Plan - Diagnosis (1) Anemia Qualifiers: Anemia type: B12 deficiency Vitamin B12 deficiency anemia type: other B12 deficiency Qualified Code(s): D51.8 - Other vitamin B12 deficiency anemias Is this a current diagnosis for this admission?: YesPlan: Vitamin B-12 and iron deficiency anemia; we will replace (2) Acute renal failure Qualifiers: Acute renal failure type: unspecified Qualified Code(s): N17.9 - Acute kidney failure, unspecified Is this a current diagnosis for this admission?: YesPlan: Resolved (3) Community acquired pneumonia Is this a current diagnosis for this admission?: YesPlan: Continue present management 2 blood cultures and sputum culture were negative 10/14/16 15:45 Gram Stain - Final Sputum Sputum Culture - Final NORMAL TYSON 10/14/16 10:03 Urine Culture - Final Catheterized Urine 3,000 col/ml 10/14/16 09:36 Blood Culture - Preliminary Blood NO GROWTH AFTER 72 HOURS 10/14/16 08:28 Blood Culture - Preliminary Blood NO GROWTH AFTER 72 HOURS (4) Hypotension Qualifiers: Hypotension type: unspecified hypotension type Qualified Code(s): I95.9 - Hypotension, unspecified Is this a current diagnosis for this admission?: YesPlan: On admission secondary to early sepsis and dehydration has resolved ; will taper down steroids (5) Fluid overload Qualifiers: Hypervolemia type: other Qualified Code(s): E87.79 - Other fluid overload Is this a current diagnosis for this admission?: YesPlan: Secondary to rehydration We will give 20 mg IV Lasix 1 - Time Time Spent with patient: Patient may be discharged in a.m. if she remains stable Time Spent with patient: 25-34 minutes
[2016-10-17] MEDS ORDERED: LOPERAMIDE HCL 2 MG CAPSULE PO ONE (19:30)
[2016-10-17] MEDS: SIMVASTATIN 10 MG TABLET PO SCH (22:34)
[2016-10-17] MEDS: ACETAMINOPHEN 325 MG TABLET PO PRN (22:34)
[2016-10-17] MEDS: ALPRAZOLAM 0.25 MG TABLET PO PRN (22:34)
[2016-10-17] MEDS: IPRATROPIUM/ALBUTEROL 0.5-2.5 MG/3 ML AMPUL NEB PRN (22:44)
[2016-10-18] MEDS: IPRATROPIUM/ALBUTEROL 0.5-2.5 MG/3 ML AMPUL NEB PRN ×2 (08:18→16:14)
[2016-10-18] MEDS: LEVOFLOXACIN 250 MG/D5W RTU 250 MG/50 ML RTUPB IV SCH (09:26)
[2016-10-18] MEDS: CEFEPIME 1 GM/D5W RTU 1 GM/50 ML RTUPB IV SCH (09:26)
[2016-10-18] MEDS: FERROUS SULFATE 325 MG TABLET PO SCH ×2 (09:27→17:24)
[2016-10-18] MEDS: GABAPENTIN 300 MG CAPSULE PO SCH ×2 (09:27→21:08)
[2016-10-18] MEDS: LACTOBACILLUS ACIDOPHILUS 250 MG TAB PO SCH ×2 (09:27→17:24)
[2016-10-18] MEDS: HYDROCORTISONE SOD SUCCINATE INJ/PF 100 MG/2 ML SDV IV SCH (09:27)
[2016-10-18] MEDS: FAMOTIDINE INJ/PF 20 MG/2 ML SDV IV SCH (09:28)
[2016-10-18] MEDS: ENOXAPARIN SODIUM INJ 30 MG/0.3 ML DISP.SYRIN SUBCUT SCH (09:30)
[2016-10-18] MEDS: ACETAMINOPHEN 325 MG TABLET PO PRN ×2 (11:59→19:58)
[2016-10-18] MEDS: CYANOCOBALAMIN (VITAMIN B-12) INJ 1000 MCG/1 ML VIAL IM SCH (12:53)
--- NOTE | 2016-10-18 19:05 | PDOC PROGRESS REPORT ---
Subjective Progress Note for:: 10/18/16 Subjective:: Patient is feeling a lot better today She has no chest pain no palpitations She still has some wheezing but it has improved a lot She's been ambulating Physical Exam Vital Signs: Temp Pulse Resp BP Pulse Ox 98.1 F 74 16 132/66 H 96 10/18/16 16:00 10/18/16 16:14 10/18/16 16:14 10/18/16 16:00 10/18/16 16:00 Intake & Output 10/17/16 10/18/16 10/19/16 00:59 00:59 00:59 Intake Total 2973 1530 1890 Output Total 3550 2400 1760 Balance -577 -870 130 Weight 76.6 kg 76.6 kg 76.6 kg General appearance: PRESENT: no acute distress, well-developed, well-nourished Head exam: PRESENT: atraumatic, normocephalic Eye exam: PRESENT: conjunctiva pink, EOMI, PERRLA. ABSENT: scleral icterus Ear exam: PRESENT: normal external ear exam Respiratory exam: PRESENT: decreased breath sounds, wheezes Cardiovascular exam: PRESENT: RRR. ABSENT: diastolic murmur, rubs, systolic murmur Pulses: PRESENT: normal dorsalis pedis pul Extremities exam: PRESENT: full ROM. ABSENT: calf tenderness, clubbing, pedal edema Neurological exam: PRESENT: alert, awake, oriented to person, oriented to place , oriented to time, oriented to situation, CN II-XII grossly intact. ABSENT: motor sensory deficit Results Laboratory Results: 10/17/16 05:45 10/17/16 05:45 Impressions: Chest X-Ray 10/14/16 19:07 IMPRESSION: Good position of central line. No pneumothorax. Assessment & Plan - Diagnosis (1) Anemia Qualifiers: Anemia type: B12 deficiency Vitamin B12 deficiency anemia type: other B12 deficiency Qualified Code(s): D51.8 - Other vitamin B12 deficiency anemias Is this a current diagnosis for this admission?: Yes (2) Acute renal failure Qualifiers: Acute renal failure type: unspecified Qualified Code(s): N17.9 - Acute kidney failure, unspecified Is this a current diagnosis for this admission?: Yes (3) Community acquired pneumonia Is this a current diagnosis for this admission?: Yes (4) Hypotension Qualifiers: Hypotension type: unspecified hypotension type Qualified Code(s): I95.9 - Hypotension, unspecified Is this a current diagnosis for this admission?: Yes (5) Fluid overload Qualifiers: Hypervolemia type: other Qualified Code(s): E87.79 - Other fluid overload Is this a current diagnosis for this admission?: Yes - Time Time Spent with patient: Patient is improved we will discontinue IV antibiotics and initiate by mouth Continue nebs Discontinue hydrocortisone Patient will be evaluated in a.m. for discharge if stable Time Spent with patient: 25-34 minutes
[2016-10-18] MEDS: ALPRAZOLAM 0.25 MG TABLET PO PRN (21:08)
[2016-10-18] MEDS: SIMVASTATIN 10 MG TABLET PO SCH (21:08)
[2016-10-18] MEDS: FAMOTIDINE 20 MG TABLET PO SCH (21:08)
[2016-10-19] MEDS: ENOXAPARIN SODIUM INJ 30 MG/0.3 ML DISP.SYRIN SUBCUT SCH (08:06)
[2016-10-19] MEDS: IPRATROPIUM/ALBUTEROL 0.5-2.5 MG/3 ML AMPUL NEB PRN (09:32)
[2016-10-19] MEDS: GABAPENTIN 300 MG CAPSULE PO SCH (09:49)
[2016-10-19] MEDS: FAMOTIDINE 20 MG TABLET PO SCH (09:49)
[2016-10-19] MEDS: LACTOBACILLUS ACIDOPHILUS 250 MG TAB PO SCH (09:50)
[2016-10-19] MEDS: FERROUS SULFATE 325 MG TABLET PO SCH (09:50)
[2016-10-19] MEDS ORDERED: LEVOFLOXACIN 500 MG TABLET PO SCH (10:00)
[2016-10-19] MEDS ORDERED: LEVOFLOXACIN 250 MG TABLET PO SCH (10:00)
[2016-10-19] MEDS ORDERED: POTASSIUM CHLORIDE 10 MEQ TABLET.SA PO ONE (11:05)
[2016-10-19] MEDS: CYANOCOBALAMIN (VITAMIN B-12) INJ 1000 MCG/1 ML VIAL IM SCH (11:23)
[2016-10-19 11:53] VITALS: BP 132/53
--- NOTE | 2016-10-21 13:32 | PDOC DISCHARGE SUMMARY ---
General - Admit/Disc Date/PCP Admission Date/Primary Care Provider: 10/14/16 12:08 KEVIN GRIMALDO MD Discharge Date: 10/19/16 - Discharge Diagnosis (1) Anemia Is this a current diagnosis for this admission?: YesSummary: iron deficiency and vitamin B12 deficiency 10/16/16 10/16/16 10/17/16 05:45 05:45 05:45 Hgb 9.8 L Hct 29.4 L Iron 25.1 L TIBC 233 L Transferrin 165 L Vitamin B12 210.0 L discharged on B12 and iron supplements (2) Acute renal failure Is this a current diagnosis for this admission?: YesSummary: secondary to dehydration resolved (3) Community acquired pneumonia Is this a current diagnosis for this admission?: YesSummary: blood cultures and sputum culture negative patient was discharged on levaquin (4) Hypotension Is this a current diagnosis for this admission?: YesSummary: secondary to sepsis and dehydration resolved - Additional Information Resuscitation Status: Full Code Discharge Diet: As Tolerated Discharge Activity: Activity As Tolerated Home Medications: Alprazolam [Xanax 0.25 mg Tablet] 0.25 mg PO Q8HP PRN 10/14/16 Ascorbic Acid [Vitamin C] 1,000 mg PO DAILY 10/14/16 Calcium Carbonate/Vitamin D3 [Calcium 600-Vit D3 800 Tablet] 1 tab PO DAILY Chlorthalidone [Chlorthalidone 25 mg Tablet] 0.5 tab PO DAILY 10/14/16 Cholecalciferol (Vitamin D3) [Vitamin D3] 1 cap PO DAILY 10/14/16 Gabapentin [Neurontin] 600 mg PO BID 10/14/16 Prednisone 5 mg PO BID 10/14/16 Simvastatin [Zocor 10 mg Tablet] 10 mg PO QHS 10/14/16 Vit A/C/E AC/Znox/Cupric Oxide [Eye Vitamin-Minerals Tablet] 1 tab PO DAILY Acidoph/L.bulg/Bif.b/S.thermop [Bacid Caplet] 1 each PO BID #14 tablet 10/19/16 Cyanocobalamin (Vitamin B-12) [B-12] 2,500 mcg SL DAILY #30 tab.subl 10/19/16 Ferrous Sulfate [Feosol 325 mg Tablet] 325 mg PO BID #60 tablet 10/19/16 Ipratropium/Albuterol Sulfate [Combivent Respimat Inhal [place]] 4 gm IH QIDP PRN #1 aer.w.adap 10/19/16 Levofloxacin [Levaquin 500 mg Tablet] 500 mg PO DAILY #7 tablet 10/19/16 Lisinopril [Prinivil] 10 mg PO DAILY #30 10/19/16 History of Present Illness Patient complains of: shortness of breath History of Present Illness: PARDEEP FOSTER is a 76 year old female presents from home with sudden onset weakness approximately 12 hours ago. She says it all started with a sore throat after visiting with her grandkids for the past week noting that they seem to be suffering from some upper respiratory infection with "snotty noses and sore throats". She felt fine until this morning with sudden weakness "like a kitten, I couldn't get out of bed", then the sore throat followed by a dry hacking cough followed by nausea and vomiting followed by diarrhea. She denies subjective fevers at home but was febrile in the emergency department at 102.7. Evaluation in the emergency department has findings consistent with a pneumonia and sepsis with shock we were asked to admit for further evaluation and management. Initial systolic blood pressure initially in the 80s that required 3+ liters of normal saline to maintain a mean arterial pressure greater than or equal to 65, and she was tachycardic. She reports previous hospitalizations for pneumonia requiring brief stay in intensive care and broad- spectrum antibiotics, she does not relate a history of pseudomonas or MRSA. She is on immunosuppressive therapy for rheumatoid arthritis and therefore is at grave risk for gram-negative organisms. Hospital Course Hospital Course: see above Physical Exam Vital Signs: Temp Pulse Resp BP Pulse Ox 98.0 F 84 18 132/53 H 91 L 10/19/16 11:50 10/19/16 11:50 10/19/16 11:50 10/19/16 11:50 10/19/16 11:50 Intake & Output 10/20/16 10/21/16 10/22/16 00:59 00:59 00:59 Intake Total 50 Output Total 800 Balance -750 Weight 76.6 kg General appearance: PRESENT: no acute distress, cooperative Head exam: PRESENT: atraumatic, normocephalic Eye exam: PRESENT: conjunctiva pink, EOMI, PERRLA. ABSENT: scleral icterus Neck exam: PRESENT: carotid bruit Respiratory exam: PRESENT: clear to auscultation tamir. ABSENT: accessory muscle use Cardiovascular exam: PRESENT: RRR. ABSENT: diastolic murmur, rubs, systolic murmur GI/Abdominal exam: PRESENT: normal bowel sounds, soft. ABSENT: distended, guarding, mass, organolmegaly, rebound, tenderness Neurological exam: PRESENT: alert, awake, CN II-XII grossly intact Results Laboratory Results: 10/17/16 05:45 10/17/16 05:45 Labs- Entire Visit 10/14/16 10/14/16 10/14/16 08:28 08:28 08:28 WBC 10.7 H RBC 3.71 L Hgb 11.8 L Hct 36.3 MCV 98 H MCH 31.9 MCHC 32.6 RDW 14.2 H Plt Count 283 Total Counted 100 Seg Neutrophils % Not Reportable Seg Neuts % (Manual) 76 Band Neutrophils % 1 L Lymphocytes % Not Reportable Lymphocytes % (Manual) 11 L Atypical Lymphs % 2 Monocytes % Not Reportable Monocytes % (Manual) 6 Eosinophils % Not Reportable Eosinophils % (Manual) 2 Basophils % Not Reportable Basophils % (Manual) 0 Metamyelocytes % 2 H Absolute Neutrophils Not Reportable Abs Neuts (Manual) 8.5 H Absolute Lymphocytes Not Reportable Abs Lymphs (Manual) 1.4 Absolute Monocytes Not Reportable Abs Monocytes (Manual) 0.6 Absolute Eosinophils Not Reportable Absolute Eos (Manual) 0.2 Absolute Basophils Not Reportable Abs Basophils (Manual) 0.0 Platelet Comment ADEQUATE Poikilocytosis Anisocytosis Ovalocytes RBC Morph Comment NORMO-CYTIC/CHROMIC Retic Count (auto) Absolute Retic PT 11.8 INR 0.84 VBG pH VBG pCO2 VBG HCO3 VBG Base Excess Sodium 141.7 Potassium 4.0 Chloride 98 Carbon Dioxide 28 Anion Gap 16 BUN 29 H Creatinine 1.46 H Est GFR ( Amer) 42 L Est GFR (Non-Af Amer) 35 L Glucose 104 POC Glucose Lactic Acid Calcium 9.3 Magnesium Iron TIBC % Saturation Transferrin Ferritin Total Bilirubin 0.3 Direct Bilirubin 0.0 AST 26 ALT 24 Alkaline Phosphatase 58 Total Protein 6.6 Albumin 3.6 Lipase Vitamin B12 Folate Urine Color Urine Appearance Urine pH Ur Specific [place] Urine Protein Urine Glucose (UA) Urine Ketones Urine Blood Urine Nitrite Urine Bilirubin Urine Urobilinogen Ur Leukocyte Esterase Urine WBC (Auto) Urine RBC (Auto) Urine Mucus (Auto) Urine Ascorbic Acid Stool Occult Blood Stool for White Cells C. difficile Tox (PCR) Influenza A (Rapid) Influenza B (Rapid) 10/14/16 10/14/16 10/14/16 08:28 08:28 08:45 WBC RBC Hgb Hct MCV MCH MCHC RDW Plt Count Total Counted Seg Neutrophils % Seg Neuts % (Manual) Band Neutrophils % Lymphocytes % Lymphocytes % (Manual) Atypical Lymphs % Monocytes % Monocytes % (Manual) Eosinophils % Eosinophils % (Manual) Basophils % Basophils % (Manual) Metamyelocytes % Absolute Neutrophils Abs Neuts (Manual) Absolute Lymphocytes Abs Lymphs (Manual) Absolute Monocytes Abs Monocytes (Manual) Absolute Eosinophils Absolute Eos (Manual) Absolute Basophils Abs Basophils (Manual) Platelet Comment Poikilocytosis Anisocytosis Ovalocytes RBC Morph Comment Retic Count (auto) Absolute Retic PT INR VBG pH VBG pCO2 VBG HCO3 VBG Base Excess Sodium Potassium Chloride Carbon Dioxide Anion Gap BUN Creatinine Est GFR ( Amer) Est GFR (Non-Af Amer) Glucose POC Glucose Lactic Acid 3.2 H Calcium Magnesium 1.4 L Iron TIBC % Saturation Transferrin Ferritin Total Bilirubin Direct Bilirubin AST ALT Alkaline Phosphatase Total Protein Albumin Lipase 163.2 Vitamin B12 Folate Urine Color Urine Appearance Urine pH Ur Specific [place] Urine Protein Urine Glucose (UA) Urine Ketones Urine Blood Urine Nitrite Urine Bilirubin Urine Urobilinogen Ur Leukocyte Esterase Urine WBC (Auto) Urine RBC (Auto) Urine Mucus (Auto) Urine Ascorbic Acid Stool Occult Blood Stool for White Cells C. difficile Tox (PCR) Influenza A (Rapid) NEGATIVE Influenza B (Rapid) NEGATIVE 10/14/16 10/14/16 10/14/16 09:29 09:36 10:03 WBC RBC Hgb Hct MCV MCH MCHC RDW Plt Count Total Counted Seg Neutrophils % Seg Neuts % (Manual) Band Neutrophils % Lymphocytes % Lymphocytes % (Manual) Atypical Lymphs % Monocytes % Monocytes % (Manual) Eosinophils % Eosinophils % (Manual) Basophils % Basophils % (Manual) Metamyelocytes % Absolute Neutrophils Abs Neuts (Manual) Absolute Lymphocytes Abs Lymphs (Manual) Absolute Monocytes Abs Monocytes (Manual) Absolute Eosinophils Absolute Eos (Manual) Absolute Basophils Abs Basophils (Manual) Platelet Comment Poikilocytosis Anisocytosis Ovalocytes RBC Morph Comment Retic Count (auto) Absolute Retic PT INR VBG pH 7.36 VBG pCO2 51.3 VBG HCO3 28.0 VBG Base Excess 1.9 Sodium Potassium Chloride Carbon Dioxide Anion Gap BUN Creatinine Est GFR ( Amer) Est GFR (Non-Af Amer) Glucose POC Glucose 88 Lactic Acid Calcium Magnesium Iron TIBC % Saturation Transferrin Ferritin Total Bilirubin Direct Bilirubin AST ALT Alkaline Phosphatase Total Protein Albumin Lipase Vitamin B12 Folate Urine Color STRAW Urine Appearance CLEAR Urine pH 7.0 Ur Specific [place] 1.011 Urine Protein NEGATIVE Urine Glucose (UA) NEGATIVE Urine Ketones NEGATIVE Urine Blood NEGATIVE Urine Nitrite NEGATIVE Urine Bilirubin NEGATIVE Urine Urobilinogen NEGATIVE Ur Leukocyte Esterase NEGATIVE Urine WBC (Auto) 1 Urine RBC (Auto) 3 Urine Mucus (Auto) RARE Urine Ascorbic Acid 20 H Stool Occult Blood Stool for White Cells C. difficile Tox (PCR) Influenza A (Rapid) Influenza B (Rapid) 10/14/16 10/14/16 10/14/16 12:52 16:55 16:55 WBC RBC Hgb Hct MCV MCH MCHC RDW Plt Count Total Counted Seg Neutrophils % Seg Neuts % (Manual) Band Neutrophils % Lymphocytes % Lymphocytes % (Manual) Atypical Lymphs % Monocytes % Monocytes % (Manual) Eosinophils % Eosinophils % (Manual) Basophils % Basophils % (Manual) Metamyelocytes % Absolute Neutrophils Abs Neuts (Manual) Absolute Lymphocytes Abs Lymphs (Manual) Absolute Monocytes Abs Monocytes (Manual) Absolute Eosinophils Absolute Eos (Manual) Absolute Basophils Abs Basophils (Manual) Platelet Comment Poikilocytosis Anisocytosis Ovalocytes RBC Morph Comment Retic Count (auto) Absolute Retic PT INR VBG pH VBG pCO2 VBG HCO3 VBG Base Excess Sodium Potassium Chloride Carbon Dioxide Anion Gap BUN Creatinine Est GFR ( Amer) Est GFR (Non-Af Amer) Glucose POC Glucose Lactic Acid 2.7 H Calcium Magnesium Iron TIBC % Saturation Transferrin Ferritin Total Bilirubin Direct Bilirubin AST ALT Alkaline Phosphatase Total Protein Albumin Lipase Vitamin B12 Folate Urine Color Urine Appearance Urine pH Ur Specific [place] Urine Protein Urine Glucose (UA) Urine Ketones Urine Blood Urine Nitrite Urine Bilirubin Urine Urobilinogen Ur Leukocyte Esterase Urine WBC (Auto) Urine RBC (Auto) Urine Mucus (Auto) Urine Ascorbic Acid Stool Occult Blood NEGATIVE Stool for White Cells NO WBCs SEEN C. difficile Tox (PCR) Influenza A (Rapid) Influenza B (Rapid) 10/14/16 10/15/16 10/15/16 16:55 05:45 05:45 WBC 8.2 RBC 2.90 L Hgb 9.4 L D Hct 28.3 L MCV 98 H MCH 32.6 MCHC 33.3 RDW 14.7 H Plt Count 208 Total Counted 100 Seg Neutrophils % Not Reportable Seg Neuts % (Manual) 83 H Band Neutrophils % Lymphocytes % Not Reportable Lymphocytes % (Manual) 9 L Atypical Lymphs % 2 Monocytes % Not Reportable Monocytes % (Manual) 6 Eosinophils % Not Reportable Eosinophils % (Manual) 0 Basophils % Not Reportable Basophils % (Manual) 0 Metamyelocytes % Absolute Neutrophils Not Reportable Abs Neuts (Manual) 6.8 Absolute Lymphocytes Not Reportable Abs Lymphs (Manual) 0.9 Absolute Monocytes Not Reportable Abs Monocytes (Manual) 0.5 Absolute Eosinophils Not Reportable Absolute Eos (Manual) 0.0 Absolute Basophils Not Reportable Abs Basophils (Manual) 0.0 Platelet Comment ADEQUATE Poikilocytosis 1+ Anisocytosis SLIGHT Ovalocytes 1+ RBC Morph Comment Retic Count (auto) Absolute Retic PT INR VBG pH VBG pCO2 VBG HCO3 VBG Base Excess Sodium 139.1 Potassium 4.5 Chloride 107 Carbon Dioxide 25 Anion Gap 7 BUN 23 H Creatinine 1.12 Est GFR ( Amer) 57 L Est GFR (Non-Af Amer) 47 L Glucose 103 POC Glucose Lactic Acid Calcium 7.8 L Magnesium Iron TIBC % Saturation Transferrin Ferritin Total Bilirubin Direct Bilirubin AST ALT Alkaline Phosphatase Total Protein Albumin Lipase Vitamin B12 Folate Urine Color Urine Appearance Urine pH Ur Specific [place] Urine Protein Urine Glucose (UA) Urine Ketones Urine Blood Urine Nitrite Urine Bilirubin Urine Urobilinogen Ur Leukocyte Esterase Urine WBC (Auto) Urine RBC (Auto) Urine Mucus (Auto) Urine Ascorbic Acid Stool Occult Blood Stool for White Cells C. difficile Tox (PCR) NEGATIVE Influenza A (Rapid) Influenza B (Rapid) 10/16/16 10/16/16 10/16/16 05:45 05:45 05:45 WBC 6.7 RBC 2.97 L Hgb 9.6 L Hct 28.7 L MCV 97 MCH 32.4 MCHC 33.5 RDW 14.9 H Plt Count 204 Total Counted Seg Neutrophils % 73.3 Seg Neuts % (Manual) Band Neutrophils % Lymphocytes % 19.0 Lymphocytes % (Manual) Atypical Lymphs % Monocytes % 7.3 Monocytes % (Manual) Eosinophils % 0.0 Eosinophils % (Manual) Basophils % 0.4 Basophils % (Manual) Metamyelocytes % Absolute Neutrophils 4.9 Abs Neuts (Manual) Absolute Lymphocytes 1.3 Abs Lymphs (Manual) Absolute Monocytes 0.5 Abs Monocytes (Manual) Absolute Eosinophils 0.0 Absolute Eos (Manual) Absolute Basophils 0.0 Abs Basophils (Manual) Platelet Comment Poikilocytosis Anisocytosis Ovalocytes RBC Morph Comment Retic Count (auto) 1.15 Absolute Retic 0.034 PT INR VBG pH VBG pCO2 VBG HCO3 VBG Base Excess Sodium 139.4 Potassium 4.1 Chloride 104 Carbon Dioxide 26 Anion Gap 9 BUN 22 H Creatinine 1.17 Est GFR ( Amer) 54 L Est GFR (Non-Af Amer) 45 L Glucose 112 H POC Glucose Lactic Acid Calcium 8.2 L Magnesium 1.6 Iron 25.1 L TIBC 233 L % Saturation 11 Transferrin 165 L Ferritin 150.00 Total Bilirubin Direct Bilirubin AST ALT Alkaline Phosphatase Total Protein Albumin Lipase Vitamin B12 210.0 L Folate 17.90 Urine Color Urine Appearance Urine pH Ur Specific [place] Urine Protein Urine Glucose (UA) Urine Ketones Urine Blood Urine Nitrite Urine Bilirubin Urine Urobilinogen Ur Leukocyte Esterase Urine WBC (Auto) Urine RBC (Auto) Urine Mucus (Auto) Urine Ascorbic Acid Stool Occult Blood Stool for White Cells C. difficile Tox (PCR) Influenza A (Rapid) Influenza B (Rapid) 10/17/16 10/17/16 05:45 05:45 WBC 8.1 RBC 3.08 L Hgb 9.8 L Hct 29.4 L MCV 96 MCH 31.8 MCHC 33.3 RDW 14.6 H Plt Count 213 Total Counted Seg Neutrophils % 66.0 Seg Neuts % (Manual) Band Neutrophils % Lymphocytes % 26.6 Lymphocytes % (Manual) Atypical Lymphs % Monocytes % 7.2 Monocytes % (Manual) Eosinophils % 0.0 Eosinophils % (Manual) Basophils % 0.2 Basophils % (Manual) Metamyelocytes % Absolute Neutrophils 5.3 Abs Neuts (Manual) Absolute Lymphocytes 2.2 Abs Lymphs (Manual) Absolute Monocytes 0.6 Abs Monocytes (Manual) Absolute Eosinophils 0.0 Absolute Eos (Manual) Absolute Basophils 0.0 Abs Basophils (Manual) Platelet Comment Poikilocytosis Anisocytosis Ovalocytes RBC Morph Comment Retic Count (auto) Absolute Retic PT INR VBG pH VBG pCO2 VBG HCO3 VBG Base Excess Sodium 141.8 Potassium 3.4 L Chloride 102 Carbon Dioxide 30 Anion Gap 10 BUN 25 H Creatinine 1.20 Est GFR ( Amer) 53 L Est GFR (Non-Af Amer) 44 L Glucose 88 POC Glucose Lactic Acid Calcium 8.4 Magnesium Iron TIBC % Saturation Transferrin Ferritin Total Bilirubin Direct Bilirubin AST ALT Alkaline Phosphatase Total Protein Albumin Lipase Vitamin B12 Folate Urine Color Urine Appearance Urine pH Ur Specific [place] Urine Protein Urine Glucose (UA) Urine Ketones Urine Blood Urine Nitrite Urine Bilirubin Urine Urobilinogen Ur Leukocyte Esterase Urine WBC (Auto) Urine RBC (Auto) Urine Mucus (Auto) Urine Ascorbic Acid Stool Occult Blood Stool for White Cells C. difficile Tox (PCR) Influenza A (Rapid) Influenza B (Rapid) Impressions: Chest X-Ray 10/14/16 19:07 IMPRESSION: Good position of central line. No pneumothorax. Plan Discharge Plan: discharged home follow up with PMD in 1 week
== END 2016-10-19 12:40 | disposition home or self-care (01) | DRG 871 ==
LOC: ER 07:29 → UNDOADMIN 11:09 → EH 11:09 → ICU 13:55 → 4S 10-16 00:39
PROVIDERS: ADMIT Internal Medicine; ATTEND Internal Medicine
PROC: 02HV33Z Insertion of Infusion Device into Superior Vena Cava, Percutaneous Approach (ICD-10-PCS; principal; 2016-10-14)
PROC: B548ZZA Ultrasonography of Superior Vena Cava, Guidance (ICD-10-PCS; 2016-10-14)
DX: A41.9 Sepsis, unspecified organism (principal); J18.9 Pneumonia, unspecified organism; R65.21 Severe sepsis with septic shock; N17.9 Acute kidney failure, unspecified; E78.5 Hyperlipidemia, unspecified; I10 Essential (primary) hypertension; E83.42 Hypomagnesemia; E86.0 Dehydration; D53.9 Nutritional anemia, unspecified; M06.9 Rheumatoid arthritis, unspecified
CPT/HCPCS: 36415; 51701; 71010; 71020; 80048; 80053; 81001; 82272; 82607; 82728; 82746; 82803; 82962; 83540; 83550; 83605; 83690; 83735; 84466; 85025; 85045; 85610; 87040; 87045; 87070; 87086; 87205; 87493; 87804; 89055; 93005; 93010; 94640; 96374; 99291; C1751; J0692; J0696; J1650; J1720; J1940; J1956; J3420; J3475; J3490; J7030; J7120; J7620; S0028

== ENCOUNTER 2016-12-08 04:42 | Emergency (ER) | payer MEDICARE, BC ==
[2016-12-08] MEDS ORDERED: NORMAL SALINE 1000 ML 1,000 ML IV ONE (05:05)
--- NOTE | 2016-12-08 05:10 | ER Document Report ---
ED GI/ - General Chief Complaint: Nausea/Vomiting/Diarrhea Stated Complaint: NAUSEA VOMITING Notes: The patient is a 76-year-old female, past medical history hypertension, presents with 1 day of nausea, vomiting and 2 episodes of diarrhea. She says that she has had 20 episodes of vomiting for the past day. She took a laxative yesterday for constipation and then had 2 loose bowel movements. Her does not have similar symptoms. The patient has had this in the past and it resolved without any intervention. She was given 8 mg Zofran ODT by EMS prior to arrival. She denies abdominal pain, chest pain, shortness of breath, fevers , hematemesis, blood in stool, urinary symptoms or flank pain. TRAVEL OUTSIDE OF THE [place] IN LAST 30 DAYS: No - Related Data Allergies/Adverse Reactions: codeine Allergy (Verified 10/14/16 07:46) meperidine [From Demerol] Allergy (Verified 10/14/16 07:41) Past Medical History - General Information source: Patient - Social History Smoking Status: Unknown if Ever Smoked Family History: Reviewed & Not Pertinent - Past Medical History Cardiac Medical History: Reports: Hx Hypercholesterolemia, Hx Hypertension Denies: Hx Congestive Heart Failure, Hx Coronary Artery Disease, Hx Heart Attack Past Surgical History: Reports: Hx Abdominal Surgery, Hx Appendectomy, Hx Hysterectomy Review of Systems - Review of Systems Notes: REVIEW OF SYSTEMS: CONSTITUTIONAL: -fevers, -chills EENT: -eye pain, -difficulty swallowing, -nasal congestion CARDIOVASCULAR:-chest pain, -syncope. RESPIRATORY: -cough, -SOB GASTROINTESTINAL: -abdominal pain, +nausea, +vomiting, +diarrhea GENITOURINARY: -dysuria, -hematuria MUSCULOSKELETAL: -back pain, -neck pain SKIN: -rash or skin lesions. HEMATOLOGIC: -easy bruising or bleeding. LYMPHATIC: -swollen, enlarged glands. NEUROLOGICAL: -altered mental status or loss of consciousness, -headache, - neurologic symptoms PSYCHIATRIC: -anxiety, -depression. ALL OTHER SYSTEMS REVIEWED AND NEGATIVE. Physical Exam - Vital signs Vitals: Temp Pulse Resp BP Pulse Ox 98.2 F 102 H 18 127/51 H 94 12/08/16 04:48 12/08/16 04:48 12/08/16 04:48 12/08/16 04:48 12/08/16 04:48 - Notes Notes: PHYSICAL EXAMINATION: GENERAL: Well-appearing, well-nourished and in no acute distress. HEAD: Atraumatic, normocephalic. EYES: Pupils equal round and reactive to light, extraocular movements intact, sclera anicteric, conjunctiva are normal. ENT: nares patent, oropharynx clear without exudates. Moist mucous membranes. NECK: Normal range of motion, supple without lymphadenopathy LUNGS: Breath sounds clear to auscultation bilaterally and equal. No wheezes rales or rhonchi. HEART: Regular rate and rhythm without murmurs ABDOMEN: Soft, nontender, normoactive bowel sounds. No guarding, no rebound. No masses appreciated. EXTREMITIES: Normal range of motion, no pitting or edema. No cyanosis. NEUROLOGICAL: Cranial nerves grossly intact. Normal speech, normal gait. Normal sensory, motor, and reflex exams. PSYCH: Normal mood, normal affect. SKIN: Warm, Dry, normal turgor, no rashes or lesions noted. Course - Re-evaluation Re-evalutation: Patient's leukocytosis most likely from vomiting. No signs of infection and she is afebrile. Abdominal exam is completely nontender. After Zofran, patient has not had any more episodes of vomiting and she feels much better. She has also not had any episodes of diarrhea while in the ED and she has not been on recent Abx. Suspect that her loose stools are from the laxative. She appears well. Will send home with Zoan and instructions to drink plenty of fluids. Given strict return precautions and she understands. - Vital Signs Vital signs: Temp Pulse Resp BP Pulse Ox 98.2 F 102 H 18 127/51 H 94 12/08/16 04:48 12/08/16 04:48 12/08/16 04:48 12/08/16 04:48 12/08/16 04:48 - Laboratory Result Diagrams: 12/08/16 05:07 12/08/16 05:07 Laboratory results interpreted by me: 12/08/16 05:07 WBC 17.6 H RBC 3.71 L Hgb 11.7 L Hct 35.0 L RDW 15.0 H Seg Neutrophils % 81.1 H Lymphocytes % 7.9 L Absolute Neutrophils 14.3 H Absolute Monocytes 1.7 H Discharge - Discharge Clinical Impression: Nausea vomiting and diarrhea Condition: Stable Disposition: HOME, SELF-CARE Additional Instructions: VOMITING: Vomiting (or nausea without vomiting) can be caused by many other different problems. It can mean that something's wrong with the stomach, such as ulcers or inflammation or the intestinal tract, such as appendicitis. But it can also be a symptom of a problem that has nothing to do with the stomach or intestines. Vomiting is common with severe headaches, earaches, tonsillitis, and kidney infections, etc. We see it with pneumonia or heart attacks. Drugs can cause nausea and vomiting. Many abdominal problems cause vomiting; for example, gallstones, kidney stones, pancreatitis, and intestinal obstruction ( blocked bowels). In most cases, curing the vomiting depends on fixing the problem that caused it. For temporary relief, we may use an anti-nausea medicine. For home use, we can prescribe suppositories, chewable pills, pills that dissolve in the mouth, or liquid anti-nausea drugs. If the vomiting seems to be caused by a problem in the stomach, acid-suppressing drugs may be prescribed as well. It's important to avoid dehydration. Sip small amounts of clear liquids ( soft drinks, tea, broth, etc) . Try to take fluids frequently even if you are vomiting to prevent dehydration. Take increasing amounts of fluid and when liquids are being consumed successfully, advance to small amounts of bland food (toast, soups, mashed potatoes, etc.) until you are able to resume a regular diet. Avoid aspirin, tobacco, and alcohol. If the vomiting worsens, if the problem that's making you vomit worsens, or if there's evidence of bleeding in the stomach (such as black, tarry stool, or bloody or black vomit), you should return immediately. Also, return if abdominal pain worsens or becomes localized to one area or you develop high fever. Call your doctor if you aren't improved in 24 hours. DIARRHEA, NON-SPECIFIC: Diarrhea means frequent, watery stools. There are many causes. Any problem that keeps the intestinal tract from absorbing water from the stool can lead to diarrhea. A sudden new diarrhea problem is usually caused by a virus, food sensitivity, toxic bacteria, or drugs. In this case, we expect the problem to go away soon. Testing is done only if you seem seriously ill from the diarrhea. If you have chronic diarrhea, or diarrhea that keeps coming back, we need to find out why. Chronic diarrhea can be due to inflammation of the bowels such as Crohn's disease or ulcerative colitis, food sensitivity such as intolerance to lactose or wheat protein, irritable bowel syndrome, and other problems. If your diarrhea is a significant problem but it's not clear why you have it, we' ll refer you to a specialist for further testing. During an episode of diarrhea, drink small amounts (two to six ounces) of clear liquids (soft drinks, sport drinks, herb teas, broth, etc). Take fluids frequently to prevent dehydration. It's usually not a problem to take mild anti- diarrhea medication such as Kaopectate or Pepto-Bismol. As the diarrhea eases, advance to small amounts of bland food (mashed potato, toast) for 24 hours. Call the physician if blood appears in your vomit or stool, if vomiting lasts longer than 24 hours, if the abdominal pain worsens or becomes localized to one area, if you develop high fever, or if you become lightheaded and weak. VIRAL SYNDROME: The physician has diagnosed a viral infection. Viruses not only cause "colds," but can cause many different symptoms including generalized aching, fever, headache, cough, diarrhea, nausea, vomiting, and fatigue. The treatment, for the most part, is simply relief of symptoms. This means that antibiotics are usually not given. Rest, fluids, pain medications and, occasionally, medication for the specific symptoms that are most bothersome will be prescribed. Use good handwashing to avoid passing the virus to others. Shared toys should be cleaned with disinfectant. Clean the toilets, sinks, and counter surfaces in bathrooms. Launder clothing in hot water. Contact the physician if you develop any new or unusual symptoms such as severe headache, stiff neck, high fever, chest pain, productive cough, or shortness of breath. You should be rechecked if you don't see marked improvement within seven to 10 days. INTRAVENOUS (I V) FLUIDS: As part of your care today, you received intravenous (IV) fluids. IV fluids are administered to patients who are dehydrated or to those who have certain chemical (electrolyte) abnormalities that need correcting. ANTINAUSEA MEDICATION: You have been given a medication to suppress nausea and vomiting. This type of medication can be given as a shot, pill, or suppository. It will usually last for many hours. Pills and shots usually last six to eight hours. For the typical illness, only one or two doses of the medication may be necessary. Mild lightheadedness may occur. This type of medicine can cause drowsiness. Do not drive or operate dangerous machinery while under its influence. Do not mix with alcohol. See your doctor at once if you have muscle spasms or tightness, or uncontrollable motions (particularly of the neck, mouth, or jaw). Persistent vomiting or severe lightheadedness should also be evaluated by the physician. FOLLOW-UP CARE: If you have been referred to a physician for follow-up care, call the physician s office for an appointment as you were instructed or within the next two days. If you experience worsening or a significant change in your symptoms, notify the physician immediately or return to the Emergency Department at any time for re-evaluation. Prescriptions: Ondansetron [Zofran Odt 4 mg Tablet] 1 - 2 tab PO Q4H PRN #15 tab.rapdis PRN Reason: For Nausea/Vomiting
[2016-12-08 05:34] LABS: ABSOLUTE BASOPHILS # (AUTO) 0.1 10^3/uL (0.0-0.2); ABSOLUTE EOSINOPHILS # (AUTO) 0.1 10^3/uL (0.0-0.6); ABSOLUTE LYMPHOCYTES (AUTO) 1.4 10^3/uL (0.5-4.7); ABSOLUTE MONOCYTES (AUTO) 1.7 10^3/uL (0.1-1.4); ABSOLUTE NEUT (AUTO) 14.3 10^3/uL (1.7-8.2); BASOPHILS % (AUTO) 0.4 % (0-2); EOSINOPHILS % (AUTO) 0.8 % (0-6); HEMOGLOBIN 11.7 g/dL (12.0-15.5); HGB HCT DIFFERENCE 0.1; LYMPHOCYTES % (AUTO) 7.9 % (13-45); MEAN CORPUSCULAR HEMOGLOBIN 31.5 pg (27.0-33.4); MEAN CORPUSCULAR HGB CONC 33.3 g/dL (32.0-36.0); MEAN CORPUSCULAR VOLUME 95 fl (80-97); MONOCYTES % (AUTO) 9.8 % (3-13); RED BLOOD COUNT 3.71 10^6/uL (3.72-5.28); SEGMENTED NEUTROPHILS % (AUTO) 81.1 % (42-78); WHITE BLOOD COUNT 17.6 10^3/uL (4.0-10.5)
[2016-12-08 05:58] LABS: ALANINE AMINOTRANSFERASE 23 U/L (9-52); ALBUMIN 3.9 g/dL (3.5-5.0); ALKALINE PHOSPHATASE 66 U/L (38-126); ANION GAP 19 (5-19); ASPARTATE AMINO TRANSFERASE 20 U/L (14-36); BILIRUBIN,DIRECT 0.1 mg/dL (0.0-0.4); BILIRUBIN,TOTAL 0.3 mg/dL (0.2-1.3); BLOOD UREA NITROGEN 25 mg/dL (7-20); CALCIUM 9.6 mg/dL (8.4-10.2); CARBON DIOXIDE 23 mmol/L (22-30); CHLORIDE 105 mmol/L (98-107); CREATININE RESULT 1.24 mg/dL (0.52-1.25); GLUCOSE 116 mg/dL (75-110); POTASSIUM 3.9 mmol/L (3.6-5.0); SODIUM 146.5 mmol/L (137-145); TOTAL PROTEIN 6.8 g/dL (6.3-8.2)
[2016-12-08 06:41] VITALS: BP 116/84
== END 2016-12-08 06:40 | disposition home or self-care (01) ==
LOC: ER 04:42
DX: R11.2 Nausea with vomiting, unspecified (principal); R19.7 Diarrhea, unspecified; I10 Essential (primary) hypertension
CPT/HCPCS: 36415; 80053; 85025; 99284

== ENCOUNTER 2017-01-09 14:22 | Inpatient (IN) | payer MEDICARE, BC ==
[2017-01-09] MEDS ORDERED: NORMAL SALINE 1000 ML 1,000 ML IV ONE ×3 (14:32→18:09)
[2017-01-09] MEDS ORDERED: ONDANSETRON HCL INJ/PF 4 MG/2 ML SDV IV ONE (14:34)
[2017-01-09 14:58] LABS: ABSOLUTE BASOPHILS # (AUTO) 0.1 10^3/uL (0.0-0.2); ABSOLUTE EOSINOPHILS # (AUTO) 0.1 10^3/uL (0.0-0.6); ABSOLUTE LYMPHOCYTES (AUTO) 2.6 10^3/uL (0.5-4.7); ABSOLUTE MONOCYTES (AUTO) 1.2 10^3/uL (0.1-1.4); ABSOLUTE NEUT (AUTO) 8.2 10^3/uL (1.7-8.2); BASOPHILS % (AUTO) 0.6 % (0-2); EOSINOPHILS % (AUTO) 0.6 % (0-6); HEMATOCRIT 37.5 % (36.0-47.0); HEMOGLOBIN 12.1 g/dL (12.0-15.5); HGB HCT DIFFERENCE -1.2; LYMPHOCYTES % (AUTO) 21.4 % (13-45); MEAN CORPUSCULAR HEMOGLOBIN 30.6 pg (27.0-33.4); MEAN CORPUSCULAR HGB CONC 32.2 g/dL (32.0-36.0); MEAN CORPUSCULAR VOLUME 95 fl (80-97); MONOCYTES % (AUTO) 9.9 % (3-13); RED BLOOD COUNT 3.94 10^6/uL (3.72-5.28); RED CELL DISTRIBUTION WIDTH 14.7 % (11.5-14.0); SEGMENTED NEUTROPHILS % (AUTO) 67.5 % (42-78); WHITE BLOOD COUNT 12.2 10^3/uL (4.0-10.5)
[2017-01-09 15:15] LABS: ALANINE AMINOTRANSFERASE 31 U/L (9-52); ALKALINE PHOSPHATASE 82 U/L (38-126); ANION GAP 17 (5-19); ASPARTATE AMINO TRANSFERASE 23 U/L (14-36); BILIRUBIN,DIRECT 0.2 mg/dL (0.0-0.4); BILIRUBIN,TOTAL 0.4 mg/dL (0.2-1.3); BLOOD UREA NITROGEN 31 mg/dL (7-20); CALCIUM 9.7 mg/dL (8.4-10.2); CARBON DIOXIDE 22 mmol/L (22-30); CHLORIDE 106 mmol/L (98-107); GLUCOSE 110 mg/dL (75-110); SODIUM 145.1 mmol/L (137-145); TOTAL PROTEIN 7.4 g/dL (6.3-8.2)
[2017-01-09 15:45] LABS: APPEARANCE,URINE CLEAR; BILIRUBIN,URINE NEGATIVE (NEGATIVE); GLUCOSE, URINE NEGATIVE (NEGATIVE); KETONES,URINE NEGATIVE (NEGATIVE); LEUKOCYTE ESTERASE,URINE NEGATIVE (NEGATIVE); NITRITE,URINE NEGATIVE (NEGATIVE); PROTEIN,URINE NEGATIVE (NEGATIVE); URINE SPECIFIC GRAVITY 1.008; UROBILINOGEN,URINE NEGATIVE mg/dL (<2.0)
[2017-01-09] MEDS ORDERED: METOCLOPRAMIDE HCL INJ/PF 10 MG/2 ML SDV IV ONE (16:30)
[2017-01-09] MEDS ORDERED: FAMOTIDINE INJ/PF 20 MG/2 ML SDV IV ONE (16:30)
[2017-01-09] MEDS ORDERED: DIPHENHYDRAMINE HCL 50 MG/ML VIAL IV ONE (16:30)
--- NOTE | 2017-01-09 17:50 | RADIOLOGY REPORT (SQ) ---
EXAM DESCRIPTION: CT ABD/PELVIS WITH IV ONLY COMPLETED DATE/TIME: 01/09/2017 5:29 pm REASON FOR STUDY: luq n/v COMPARISON: None. TECHNIQUE: CT scan of the abdomen and pelvis performed using helical scanning technique with dynamic intravenous contrast injection. No oral contrast. Images reviewed with lung, soft tissue, and bone windows. Reconstructed coronal and sagittal MPR images reviewed. Delayed images for evaluation of the urinary system also acquired. All images stored on PACS. All CT scanners at this facility use dose modulation, iterative reconstruction, and/or weight based d osing when appropriate to reduce radiation dose to as low as reasonably achievable (ALARA). [facility]: Dose Right [facility]: CareDose [facility]: Dose Right [facility]: Teradose 4D [facility]: [employer] CONTRAST TYPE AND DOSE: 58mL Isovue-300 RENAL FUNCTION: BUN 31, creatinine 1.70 RADIATION DOSE: 19.42mGy. LIMITATIONS: None. FINDINGS: LOWER CHEST: There is minimal left basilar atelectasis. LIVER: The liver demonstrates no focal masses. The attenuation is normal. There is a small amount o f perihepatic fluid. SPLEEN: Normal size. No focal lesions. PANCREAS: No masses. No significant calcifications. No adjacent inflammation or peripancreatic fluid collections. Pancreatic duct not dilated. GALLBLADDER: No identified stones by CT criteria. No inflammatory changes to suggest cholecystitis. ADRENAL GLANDS: No significant masses or asymmetry. RIGHT KIDNEY AND URETER: No solid masses. No significant calcifications. No hydronephrosis or hyd roureter. LEFT KIDNEY AND URETER: No solid masses. No significant calcifications. No hydronephrosis or hydr oureter. AORTA AND VESSELS: No aneurysm. No dissection. Renal arteries, SMA, celiac without stenosis. RETROPERITONEUM: No retroperitoneal adenopathy, hemorrhage or masses. BOWEL AND PERITONEAL CAVITY: There is gastric distention. There is proximal small bowel distention w ith scattered air-fluid levels. There is decompressed distal small bowel. The colon is decompressed . Transition point appears to be in the mid pelvis. . APPENDIX: Not visualized. PELVIS: No mass or free fluid. Normal bladder. ABDOMINAL WALL: No masses. No hernias. BONES: No significant or acute findings. OTHER: No other significant finding. IMPRESSION: Findings are consistent with distal small-bowel obstruction. COMMENT: This report was called to LANE HARVEY DO at17:42 on 01/09/2017. TECHNICAL DOCUMENTATION: JOB ID: [id number] Quality ID # [id number]: Final reports with documentation of one or more dose reduction techniques (e.g., Au tomated exposure control, adjustment of the mA and/or kV according to patient size, use of iterative reconstruction technique) 2010 [employer]- All Rights Reserved
[2017-01-09] MEDS ORDERED: LIDOCAINE 1% INJ-PF (10 MG/ML) 30 ML SDV NEB ONE (18:06)
--- NOTE | 2017-01-09 18:09 | ER Document Report ---
ED General - General Chief Complaint: Abdominal Pain Stated Complaint: WEAKNESS Time Seen by Provider: 01/09/17 14:27 TRAVEL OUTSIDE OF THE [place] IN LAST 30 DAYS: No - HPI Patient complains to provider of: Vomiting abdominal cramping nausea Notes: Patient coming in today for evaluation of nausea vomiting abdominal cramping. Patient states that her pain is in the left upper quadrant epigastric region. Patient states vomited multiple times a day and is unable to take any thing orally. Patient also states she feels lightheaded and dizzy when moving around. Patient upon EMS arrival was found to have a very low blood pressure approximately 80 palp. Patient and his time after receiving 1 L fluid from EMS had a blood pressure of 100 systolic. Patient states a history of colon cancer with removal of her appendix. Patient states diffuse amount of radiation made her tissues verifiable patient is unable to undergo any colonoscopies. Patient is alert upon my evaluation. - Related Data Allergies/Adverse Reactions: codeine Allergy (Verified 10/14/16 07:46) meperidine [From Demerol] Allergy (Verified 10/14/16 07:41) Home Medications: Current Home Medications Ferrous Sulfate [Feosol 325 mg Tablet] 325 mg PO Q12 01/09/17 [History] Hydroxychloroquine Sulfate [Plaquenil 200 mg Tablet] 200 mg PO DAILY 01/09/17 [ History] Ipratropium/Albuterol Sulfate [Combivent Respimat Inhal Newman] 1 puff IH Q6 [History] Vit C/E/Zn/Coppr/Lutein/Zeaxan [Preservision Areds 2 Softgel] 2 cap PO DAILY [History] Past Medical History - Social History Smoking Status: Never Smoker Chew tobacco use (# tins/day): No Frequency of alcohol use: None Drug Abuse: None Family History: Reviewed & Not Pertinent - Past Medical History Cardiac Medical History: Reports: Hx Hypercholesterolemia, Hx Hypertension Denies: Hx Congestive Heart Failure, Hx Coronary Artery Disease, Hx Heart Attack Past Surgical History: Reports: Hx Abdominal Surgery, Hx Appendectomy, Hx Hysterectomy Review of Systems - Review of Systems Constitutional: No symptoms reported EENT: No symptoms reported Cardiovascular: No symptoms reported Respiratory: No symptoms reported Gastrointestinal: Abdominal pain, Nausea, Vomiting Genitourinary: No symptoms reported Female Genitourinary: No symptoms reported Musculoskeletal: No symptoms reported Skin: No symptoms reported Hematologic/Lymphatic: No symptoms reported Neurological/Psychological: No symptoms reported -: Yes All other systems reviewed and negative Physical Exam - Vital signs Vitals: Resp 32 H 01/09/17 14:31 Interpretation: Normal - General General appearance: Appears well, Alert - HEENT Head: Normocephalic, Atraumatic Eyes: Normal Pupils: PERRL - Respiratory Respiratory status: No respiratory distress Chest status: Nontender Breath sounds: Normal Chest palpation: Normal - Cardiovascular Rhythm: Regular Heart sounds: Normal auscultation Murmur: No - Abdominal Inspection: Normal Distension: No distension Bowel sounds: Normal Tenderness: Tender - Mild left upper quadrant Organomegaly: No organomegaly - Back Back: Normal, Nontender - Extremities General upper extremity: Normal inspection, Nontender, Normal color, Normal ROM , Normal temperature General lower extremity: Normal inspection, Nontender, Normal color, Normal ROM , Normal temperature, Normal weight bearing. No: Richardson's sign - Neurological Neuro grossly intact: Yes Cognition: Normal Orientation: AAOx4 [place] Coma Scale Eye Opening: Spontaneous [place] Coma Scale Verbal: Oriented [place] Coma Scale Motor: Obeys Commands [place] Coma Scale Total: 15 Speech: Normal Motor strength normal: LUE, RUE, LLE, RLE Sensory: Normal - Psychological Associated symptoms: Normal affect, Normal mood - Skin Skin Temperature: Warm Skin Moisture: Dry Skin Color: Normal Course - Re-evaluation Re-evalutation: 01/09/17 22:12 Patient's initial lab work showed acute renal failure more likely from dehydration. Patient continued to vomit therefore CT scan was performed showing a small bowel obstruction. NG tube was inserted. Patient was consulted with the surgical service who agreed to admit the patient under his care. Patient will be admitted for further evaluation. - Vital Signs Vital signs: Temp Pulse Resp BP Pulse Ox 98.2 F 96 16 129/48 H 95 01/09/17 20:34 01/09/17 20:34 01/09/17 20:34 01/09/17 20:34 01/09/17 20:34 - Laboratory Result Diagrams: 01/09/17 14:45 01/09/17 14:45 Laboratory results interpreted by me: 01/09/17 01/09/17 01/09/17 14:45 14:45 15:29 WBC 12.2 H RDW 14.7 H Sodium 145.1 H BUN 31 H Creatinine 1.70 H Est GFR ( Amer) 35 L Est GFR (Non-Af Amer) 29 L Urine Ascorbic Acid 40 H Critical Care Note - Critical Care Note Total time excluding time spent on procedures (mins): 35 Comments: Multiple evaluation for nausea vomiting low blood pressure small bowel obstruction Discharge - Discharge Clinical Impression: SBO (small bowel obstruction) N&V (nausea and vomiting) Qualifiers: Vomiting type: vomiting of fecal matter Qualified Code(s): R11.13 - Vomiting of fecal matter Acute renal failure Qualifiers: Acute renal failure type: unspecified Qualified Code(s): N17.9 - Acute kidney failure, unspecified Admitting Provider: Surgicalist - [facility] Unit Admitted: Surgical Floor
--- NOTE | 2017-01-09 20:02 | EKG REPORT ---
SEVERITY:- NORMAL ECG - SINUS RHYTHM : Confirmed by: Titus Kelly MD 09-Jan-2017 20:01:47
[2017-01-09] MEDS ORDERED: NORMAL SALINE 1000 ML 1,000 ML IV PRN (20:23)
[2017-01-09] MEDS ORDERED: HYDROMORPHONE HCL INJ/PF 2 MG/ML AMPULE IV PRN (20:24)
[2017-01-09] MEDS ORDERED: BENZOCAINE/MENTHOL SORE THROAT LOZENGE BUCCAL PRN (23:29)
[2017-01-10 05:14] LABS: HGB HCT DIFFERENCE -0.6; MEAN CORPUSCULAR HEMOGLOBIN 31.1 pg (27.0-33.4); MEAN CORPUSCULAR HGB CONC 32.5 g/dL (32.0-36.0); MEAN CORPUSCULAR VOLUME 96 fl (80-97); RED BLOOD COUNT 3.14 10^6/uL (3.72-5.28); RED CELL DISTRIBUTION WIDTH 14.9 % (11.5-14.0); WHITE BLOOD COUNT 7.6 10^3/uL (4.0-10.5)
[2017-01-10 05:15] LABS: HEMOGLOBIN 9.8 g/dL (12.0-15.5)
[2017-01-10 05:21] LABS: ANION GAP 8 (5-19); BLOOD UREA NITROGEN 22 mg/dL (7-20); CALCIUM 8.1 mg/dL (8.4-10.2); CARBON DIOXIDE 21 mmol/L (22-30); CHLORIDE 116 mmol/L (98-107); GLUCOSE 71 mg/dL (75-110); POTASSIUM 4.5 mmol/L (3.6-5.0); SODIUM 145.4 mmol/L (137-145)
--- NOTE | 2017-01-10 08:01 | RADIOLOGY REPORT (SQ) ---
EXAM DESCRIPTION: ABDOMEN 2 VIEWS COMPLETED DATE/TIME: 01/10/2017 7:40 am REASON FOR STUDY: Obstruction series COMPARISON: CT, 1 day prior. NUMBER OF VIEWS: Two views. TECHNIQUE: Supine and erect/decubitus radiographic images of the abdomen acquired. LIMITATIONS: None. FINDINGS: FREE AIR: None. LUNG BASES: Clear. BOWEL GAS PATTERN: Nonobstructive pattern, improved compared with 1 day prior. Several air-fluid lev els in the colon. CALCIFICATIONS: No suspicious calcifications. SOFT TISSUES: No gross mass or suggestion of organomegaly. HARDWARE: Tip in proximal port of an NG tube overlie the stomach. BONES: No acute fracture. No worrisome bone lesions. OTHER: No other significant finding. IMPRESSION: Interval improvement. Few nonspecific nonspecific air-fluid levels likely in the colon only. TECHNICAL DOCUMENTATION: JOB ID: [id number] [employer]- All Rights Reserved
[2017-01-10] MEDS ORDERED: ALPRAZOLAM 0.25 MG TABLET PO PRN (11:08)
[2017-01-10] MEDS ORDERED: HYDROXYCHLOROQUINE SULFATE 200 MG TABLET PO SCH (11:15)
[2017-01-10] MEDS ORDERED: HYDROXYCHLOROQUINE SULFATE 200 MG TABLET PO ONE (12:00)
[2017-01-10] MEDS ORDERED: PREDNISONE 5 MG TABLET PO ONE (12:00)
--- NOTE | 2017-01-10 15:06 | PDOC PROGRESS REPORT ---
Subjective Progress Note for:: 01/10/17 Subjective:: Feels well. Abdominal and back to baseline. Tolerating clear liquids. Having bowel movements. No abdominal pain. Physical Exam Vital Signs: Temp Pulse Resp BP Pulse Ox 98.7 F 87 18 120/44 L 97 01/10/17 11:11 01/10/17 11:11 01/10/17 11:11 01/10/17 11:11 01/10/17 11:11 Intake & Output 01/09/17 01/10/17 01/11/17 06:59 06:59 06:59 Intake Total 563 859 Output Total 50 Balance 513 859 Weight 71.1 kg General appearance: PRESENT: no acute distress, cooperative Respiratory exam: PRESENT: clear to auscultation tamir Cardiovascular exam: PRESENT: RRR GI/Abdominal exam: PRESENT: other - Soft, nondistended, lower abdomen has a woody type of feel but she notes that this is chronic. No tenderness Results Laboratory Results: 01/10/17 04:45 01/10/17 04:45 01/09/17 01/10/17 01/10/17 21:47 04:45 04:45 WBC 7.6 RBC 3.14 L Hgb 9.8 L D Hct 30.0 L MCV 96 MCH 31.1 MCHC 32.5 RDW 14.9 H Plt Count 249 Sodium 145.4 H Potassium 4.5 Chloride 116 H Carbon Dioxide 21 L Anion Gap 8 BUN 22 H Creatinine 1.30 H Est GFR ( Amer) 48 L Est GFR (Non-Af Amer) 40 L Glucose 71 L Lactic Acid 0.9 Calcium 8.1 L Impressions: Abdomen/Pelvis CT 01/09/17 16:43 IMPRESSION: Findings are consistent with distal small-bowel obstruction. Abdomen X-Ray 01/10/17 08:00 IMPRESSION: Interval improvement. Few nonspecific nonspecific air-fluid levels likely in the colon only. Assessment & Plan - Diagnosis (1) SBO (small bowel obstruction) Is this a current diagnosis for this admission?: YesPlan: Appears to have resolved. Will try solid food. If tolerated we will plan to discharge patient home. Patient has had attempted colonoscopies in the past multiple times without success. She has had a follow-up barium enema to evaluate her colon.
[2017-01-10] MEDS: DOCUSATE SODIUM 100 MG CAPSULE PO SCH (17:27)
[2017-01-10] MEDS: IPRATROPIUM/ALBUTEROL 120 PUFF/4 GM MDI IH SCH ×2 (17:27→17:33)
[2017-01-10] MEDS: PREDNISONE 5 MG TABLET PO SCH (17:33)
[2017-01-10] MEDS: FERROUS SULFATE 325 MG TABLET PO SCH (21:38)
[2017-01-10] MEDS: GABAPENTIN 300 MG CAPSULE PO SCH (21:38)
[2017-01-10] MEDS ORDERED: SIMVASTATIN 10 MG TABLET PO SCH (22:00)
[2017-01-11] MEDS: IPRATROPIUM/ALBUTEROL 120 PUFF/4 GM MDI IH SCH ×3 (00:06→12:05)
[2017-01-11] MEDS ORDERED: (PENDING PHARMACY ID) (Cyanocobalamin (Vitamin B-12) [B-12] 2,500 MCG) SL SCH (10:00)
[2017-01-11] MEDS ORDERED: HYDROXYCHLOROQUINE SULFATE 200 MG TABLET PO SCH (10:00)
[2017-01-11] MEDS ORDERED: CYANOCOBALAMIN (VITAMIN B-12) 1,000 MCG TABLET PO SCH (10:00)
[2017-01-11] MEDS ORDERED: CHOLECALCIFEROL (D3) 1,000 UNIT TABLET PO SCH (10:00)
[2017-01-11] MEDS ORDERED: [UNRECOGNIZED DRUG - OTHER] PO SCH (10:00)
[2017-01-11] MEDS ORDERED: CALCIUM CARBONATE 250 MG/VITAMIN D3 125 UNIT TABLET PO SCH (10:00)
[2017-01-11] MEDS ORDERED: (PENDING PHARMACY ID) (Lisinopril [Prinivil] 10 MG) PO SCH (10:00)
[2017-01-11] MEDS ORDERED: (PENDING PHARMACY ID) (Cholecalciferol (Vitamin D3) [Vitamin D3] 1,000 UNIT) PO SCH (10:00)
[2017-01-11] MEDS ORDERED: LISINOPRIL 10 MG TABLET PO SCH (10:00)
[2017-01-11] MEDS ORDERED: ASCORBIC ACID 500 MG TABLET PO SCH (10:00)
[2017-01-11] MEDS ORDERED: (PENDING PHARMACY ID) (Calcium Carbonate/Vitamin D3 [Calcium 600-Vit D3 800 Tablet] 1 TAB) PO SCH (10:00)
[2017-01-11] MEDS: PREDNISONE 5 MG TABLET PO SCH (10:08)
[2017-01-11] MEDS: FERROUS SULFATE 325 MG TABLET PO SCH (10:08)
[2017-01-11] MEDS: DOCUSATE SODIUM 100 MG CAPSULE PO SCH (10:08)
[2017-01-11] MEDS: GABAPENTIN 300 MG CAPSULE PO SCH (10:08)
[2017-01-11 15:08] VITALS: BP 125/51
--- NOTE | 2017-01-11 16:53 | DISCHARGE SUMMARY E ---
Discharge Summary NAME: PARDEEP FOSTER : 1940 AGE: 76Y ADMITTED: 01/09/2017 DISCHARGED: 01/11/2017 SUMMARY OF HOSPITALIZATION: The patient is a 76-year-old female who presents to the emergency department complaining of abdominal pain. She was evaluated by CT scan of the abdomen and pelvis which showed findings consistent with partial small bowel obstruction. Of note, the patient has a history of colon cancer and ovarian cancer, with a history of adjuvant chemoradiation. The patient was admitted to the surgical service, kept n.p.o. on IV fluids. She had nasogastric tube inserted and the following day it was removed. Diet was advanced slowly and she tolerated this well. Abdominal pain and distention resolved as well. She had flatus. By the third hospital day she was felt to have received maximal benefit from the hospitalization and was discharged home. FINAL DIAGNOSES: 1. Partial small bowel obstruction, resolved. 2. History of gastrointestinal malignancy, previous surgery, radiation and chemotherapy, with no evidence of intercurrent disease. PLAN: 1. The patient can follow up with her primary care physician as previously scheduled. 2. Can follow up with general surgery on a p.r.n. basis. DICTATING PHYSICIAN: ASAD CAMPOS M.D. [id number] PHY#: [id number] ID: [id number] JOB#: [id number] ACCT: [id number] cc:ASAD CAMPOS M.D. [facility] >
--- NOTE | 2017-01-25 21:48 | HISTORY AND PHYSICAL E ---
History and Physical NAME: PARDEEP FOSTER : 1940 AGE: 76Y ADMITTED: 01/09/2017 ROOM: 427 CHIEF COMPLAINT: Abdominal pain with vomiting and nausea. HISTORY OF PRESENT ILLNESS: This is a 76-year-old female with a history of colon and ovarian cancer and had previous total hysterectomy and adjuvant chemotherapy. She complained of left upper quadrant and epigastric pains. Today she had nausea and vomiting. She went to the emergency room and noted to have a blood pressure of 80 systolic and had a liter of IV fluids with a blood pressure increasing to 100 systolic. She had a CT scan of the abdomen which showed a partial small bowel obstruction. An NG tube was then inserted. ALLERGIES: CODEINE AND DEMEROL. PAST MEDICAL HISTORY: History of hypertension and hypercholesterolemia. PAST SURGICAL HISTORY: History of abdominal surgery for colon cancer and ovarian cancer. Also had appendectomy and total hysterectomy. Had adjuvant chemotherapy after total hysterectomy. SOCIAL HISTORY: Never smoked. Denies alcohol or drug use. REVIEW OF SYSTEMS: GASTROINTESTINAL: As in HPI. History of abdominal pain with nausea and vomiting. CONSTITUTIONAL: No symptoms reported. EENT: No symptoms reported. CARDIOVASCULAR: No symptoms reported. RESPIRATORY: No symptoms reported. GENITOURINARY: No dysuria. FEMALE GENITOURINARY: No symptoms reported. MUSCULOSKELETAL: No symptoms reported. SKIN: No symptoms reported. HEMATOLOGIC/LYMPHATIC: No symptoms reported. NEUROLOGICAL/PSYCHOLOGICAL: No symptoms reported. All other systems reviewed are negative. PHYSICAL EXAMINATION: GENERAL: A well-developed, well-nourished, 76-year-old female alert and oriented, complaining of abdominal pains. HEENT: Normocephalic head. Eyes normal and pupils equal, reactive to light. LUNGS: Clear. HEART: Regular sinus rhythm. ABDOMEN: Is slightly distended with mild tenderness at the left upper quadrant. EXTREMITIES: No edema. IMPRESSION: Partial small bowel obstruction. PLAN: Keep the NG-tube and keep n.p.o. to hydrate. DICTATING PHYSICIAN: MAKAYLA AGUIRRE M.D. [id number] PHY#: [id number] ID: [id number] JOB#: [id number] ACCT: [id number] cc:MAKAYLA AGUIRRE M.D. >
--- NOTE | 2017-01-28 09:36 | HISTORY AND PHYSICAL E ---
History and Physical NAME: PARDEEP FOSTER : 1940 AGE: 76Y ADMITTED: 01/09/2017 ROOM: 427 ADDENDUM: In addition to the stated diagnoses, the patient also has acute renal failure secondary to dehydration based on clinical presentation, BUN and creatinine of 31 and 1.70. DICTATING PHYSICIAN: ASAD CAMPOS M.D. [id number] PHY#: [id number] ID: [id number] JOB#: [id number] ACCT: [id number] cc: >
== END 2017-01-11 15:55 | disposition home or self-care (01) | DRG 389 ==
LOC: ER 14:22 → EH 18:42 → 4S 20:10
PROVIDERS: ATTEND Surgery
PROC: 0D9670Z Drainage of Stomach with Drainage Device, Via Natural or Artificial Opening (ICD-10-PCS; principal; 2017-01-09)
DX: K56.60 Unspecified intestinal obstruction (principal); N17.9 Acute kidney failure, unspecified; E78.00 Pure hypercholesterolemia, unspecified; E86.0 Dehydration; I10 Essential (primary) hypertension; Z90.710 Acquired absence of both cervix and uterus; Z85.43 Personal history of malignant neoplasm of ovary; Z92.21 Personal history of antineoplastic chemotherapy; Z85.038 Personal history of other malignant neoplasm of large intestine; Z90.49 Acquired absence of other specified parts of digestive tract; Z92.3 Personal history of irradiation; Z88.6 Allergy status to analgesic agent; Z79.899 Other long term (current) drug therapy
CPT/HCPCS: 36415; 51701; 74020; 74177; 80048; 80053; 81001; 83605; 83690; 84484; 85025; 85027; 87086; 93005; 93010; 94640; 96361; 96374; 96375; 99291; J1200; J2405; J2765; J3490; J7030; J7512; S0028

== ENCOUNTER → 2018-01-01 | Outpatient (CLI) | payer MEDICARE, BC ==
--- NOTE | 2018-01-01 11:26 | RADIOLOGY REPORT (SQ) ---
EXAM DESCRIPTION: PELVIS AP COMPLETED DATE/TIME: 01/01/2018 10:11 am REASON FOR STUDY: PRESSURE ULCER OF [place]CR[place] REGION, STAGE 4 L89.154 PRESSURE ULCER OF [place] REG[place], STAGE 4 COMPARISON: CT abdomen pelvis 01/09/2017 Sacrum and coccyx films same date NUMBER OF VIEWS: One view TECHNIQUE: AP Pelvis LIMITATIONS: None. FINDINGS: MINERALIZATION: Osteopenic HIPS: No acute fracture or dislocation. No worrisome bone lesions. No significant joint space narrow ing or bony spurring. PELVIS AND SACRUM: No acute fracture or dislocation. No worrisome bone lesions. PUBIS AND ISCHIUM: No acute fracture. LOWER LUMBAR SPINE: Multilevel high-grade disc space narrowing SOFT TISSUES: No findings. OTHER: SI joints unremarkable IMPRESSION: No acute fracture or malalignment. No aggressive demineralization worrisome for osteomy angelina TECHNICAL DOCUMENTATION: JOB ID: [id number] [employer]- All Rights Reserved Reading location - IP/workstation name: [email or web address]
--- NOTE | 2018-01-01 11:27 | RADIOLOGY REPORT (SQ) ---
EXAM DESCRIPTION: SACRUM AND COCCYX COMPLETED DATE/TIME: 01/01/2018 10:11 am REASON FOR STUDY: PRESSURE ULCER OF [place]CR[place] REGION, STAGE 4 L89.154 PRESSURE ULCER OF [place]CR[place] REG[place], STAGE 4 COMPARISON: AP pelvis same date CT abdomen pelvis 01/09/2017 NUMBER OF VIEWS: Three views. TECHNIQUE: AP, lateral, and tilt views of the sacrum and coccyx. LIMITATIONS: None. FINDINGS: MINERALIZATION: Osteoporotic BONES: No acute fracture or dislocation. No aggressive bony demineralization worrisome for osteomyel itis. SOFT TISSUES: No soft tissue swelling. No foreign body. OTHER: Lower lumbar high-grade disc space loss of height. IMPRESSION: Osteopenia. No fracture. No gross bony demineralization worrisome for osteomyelitis by plain film TECHNICAL DOCUMENTATION: JOB ID: [id number]- All Rights Reserved Reading location - IP/workstation name: [email or web address]
== END ==
LOC: OD 09:55
PROVIDERS: ATTEND Nurse Practitioner
DX: L89.154 Pressure ulcer of sacral region, stage 4 (principal)
CPT/HCPCS: 72170; 72220

== ENCOUNTER → 2018-05-13 | Outpatient (CLI) | payer MEDICARE, BC ==
[2018-05-13 10:46] LABS: ABSOLUTE BASOPHILS # (AUTO) 0.1 10^3/uL (0.0-0.2); ABSOLUTE EOSINOPHILS # (AUTO) 0.2 10^3/uL (0.0-0.6); ABSOLUTE LYMPHOCYTES (AUTO) 2.9 10^3/uL (0.5-4.7); ABSOLUTE MONOCYTES (AUTO) 0.8 10^3/uL (0.1-1.4); ABSOLUTE NEUT (AUTO) 4.8 10^3/uL (1.7-8.2); BASOPHILS % (AUTO) 0.7 % (0-2); EOSINOPHILS % (AUTO) 1.9 % (0-6); HEMATOCRIT 32.9 % (36.0-47.0); HEMOGLOBIN 10.9 g/dL (12.0-15.5); LYMPHOCYTES % (AUTO) 33.4 % (13-45); MEAN CORPUSCULAR HEMOGLOBIN 31.3 pg (27.0-33.4); MEAN CORPUSCULAR HGB CONC 33.2 g/dL (32.0-36.0); MEAN CORPUSCULAR VOLUME 94 fl (80-97); MONOCYTES % (AUTO) 9.1 % (3-13); PLATELET COUNT 309 10^3/uL (150-450); RED CELL DISTRIBUTION WIDTH 14.6 % (11.5-14.0); SEGMENTED NEUTROPHILS % (AUTO) 54.9 % (42-78); TOTAL CELLS COUNTED % (AUTO) 100 %; WHITE BLOOD COUNT 8.8 10^3/uL (4.0-10.5)
--- NOTE | 2018-05-13 10:57 | RADIOLOGY REPORT (SQ) ---
EXAM DESCRIPTION: CHEST PA/LATERAL COMPLETED DATE/TIME: 05/13/2018 10:14 am REASON FOR STUDY: PRESSURE ULCER STAGE 3; COUGH COMPARISON: None. EXAM PARAMETERS: NUMBER OF VIEWS: two views TECHNIQUE: Digital Frontal and Lateral radiographic views of the chest acquired. RADIATION DOSE: NA LIMITATIONS: none FINDINGS: LUNGS AND PLEURA: Slight prominence of the interstitial markings in the lungs. No opacit ies, masses or pneumothorax. No pleural effusion. MEDIASTINUM AND HILAR STRUCTURES: No masses or contour abnormalities. HEART AND VASCULAR STRUCTURES: Heart normal size. No evidence for failure. BONES: No acute findings. HARDWARE: None in the chest. OTHER: No other significant finding. IMPRESSION: 1. NO SIGNIFICANT RADIOGRAPHIC FINDING IN THE CHEST. TECHNICAL DOCUMENTATION: JOB ID: [id number] [employer]- All Rights Reserved Reading location - IP/workstation name: [email or web address]
--- NOTE | 2018-05-13 11:02 | RADIOLOGY REPORT (SQ) ---
EXAM DESCRIPTION: SACRUM AND COCCYX COMPLETED DATE/TIME: 05/13/2018 10:14 am REASON FOR STUDY: PRESSURE ULCER STAGE 3; COUGH L89.153 PRESSURE ULCER OF [place] REGION, STAGE 3 COMPARISON: None. NUMBER OF VIEWS: Three views. TECHNIQUE: AP, lateral, and tilt views of the sacrum and coccyx. LIMITATIONS: None. FINDINGS: MINERALIZATION: Osteopenia. BONES: No acute fracture or dislocation. No evidence of erosion or destruction of bone. SOFT TISSUES: No soft tissue swelling. No foreign body. OTHER: Degenerative changes and disc disease lower lumbosacral spine, stable findings. Mild degener ative changes at the right hip. IMPRESSION: 1. No significant interval changes since the prior examination dated 01/01/2018. No acu te osseous findings. TECHNICAL DOCUMENTATION: JOB ID: [id number] [employer]- All Rights Reserved Reading location - IP/workstation name: [email or web address]
[2018-05-13 11:20] LABS: ALANINE AMINOTRANSFERASE 23 U/L (9-52); ALBUMIN 3.6 g/dL (3.5-5.0); ALKALINE PHOSPHATASE 83 U/L (38-126); ANION GAP 8 (5-19); ASPARTATE AMINO TRANSFERASE 24 U/L (14-36); BILIRUBIN,DIRECT 0.4 mg/dL (0.0-0.4); BILIRUBIN,TOTAL 0.4 mg/dL (0.2-1.3); BLOOD UREA NITROGEN 28 mg/dL (7-20); CALCIUM 9.1 mg/dL (8.4-10.2); CARBON DIOXIDE 24 mmol/L (22-30); CHLORIDE 110 mmol/L (98-107); GLUCOSE 69 mg/dL (75-110); POTASSIUM 4.8 mmol/L (3.6-5.0); SODIUM 141.5 mmol/L (137-145); TOTAL PROTEIN 6.7 g/dL (6.3-8.2)
[2018-05-13 11:22] LABS: ERYTHROCYTE SEDIMENTATION RATE 37 mm/hr (0-30)
[2018-05-13 11:25] LABS: C-REACTIVE PROTEIN < 5.0 mg/L (<10.0)
== END ==
LOC: OD 09:42
PROVIDERS: ATTEND Nurse Practitioner
DX: L89.153 Pressure ulcer of sacral region, stage 3 (principal); R05 Cough
CPT/HCPCS: 36415; 71046; 72220; 80053; 85025; 85652; 86140

== ENCOUNTER → 2019-05-23 | Outpatient (CLI) | payer MEDICARE, BC ==
--- NOTE | 2019-05-23 16:26 | RADIOLOGY REPORT (SQ) ---
EXAM DESCRIPTION: CHEST 2 VIEWS COMPLETED DATE/TIME: 05/23/2019 4:15 pm REASON FOR STUDY: J45.991 COUGH VARIANT ASTHMA Cough for 2 days, afebrile. COMPARISON: Chest x-ray 10/14/2016, 05/13/2018. EXAM PARAMETERS: NUMBER OF VIEWS: two views TECHNIQUE: Digital Frontal and Lateral radiographic views of the chest acquired. RADIATION DOSE: NA LIMITATIONS: none FINDINGS: LUNGS AND PLEURA: No consolidation, pneumothorax or pleural effusion. MEDIASTINUM AND HILAR STRUCTURES: No masses or contour abnormalities. HEART AND VASCULAR STRUCTURES: Heart normal size. No evidence for failure. Atherosclerotic calcific ations at the thoracic aorta. BONES: Multilevel degenerative changes at the spine. HARDWARE: None in the chest. IMPRESSION: NO ACUTE RADIOGRAPHIC FINDING IN THE CHEST. TECHNICAL DOCUMENTATION: JOB ID: [id number] 2010 [employer]- All Rights Reserved Reading location - IP/workstation name: [email or web address]
== END ==
LOC: RAD 16:08
PROVIDERS: ATTEND Nurse Practitioner Family
DX: J45.991 Cough variant asthma (principal)
CPT/HCPCS: 71046

== ENCOUNTER 2019-07-21 11:02 | Observation (INO) | payer MEDICARE, BC ==
--- NOTE | 2019-07-21 11:28 | ER Document Report ---
ED Medical Screen (RME) - General Chief Complaint: Breathing Difficulty Stated Complaint: FEVER/TROUBLE BREATHING Time Seen by Provider: 07/21/19 11:14 Primary Care Provider: DANNI SALAS NP [Primary Care Provider] - Follow up as needed Notes: 79-year-old female with hypertension and RA presents to the emergency department with cough and shortness of breath for the last 1 month got acutely worse since Saturday. Patient states that she went to an urgent care and was symptomatically treatment but her symptoms have not improved so she had to seek care. States that she had a subjective fever yesterday, intermittent cough, right axillary chest wall pain worse with breathing. Exam: Well-appearing no acute distress, speaking in full sentences, lungs are clear to auscultation all alvarez, patient is tachycardic with a regular rhythm I have greeted and performed a rapid initial assessment of this patient. A comprehensive ED assessment and evaluation of the patient, analysis of test results and completion of medical decision making process will be conducted by an additional ED providers. TRAVEL OUTSIDE OF THE [place] IN LAST 30 DAYS: No - Related Data Allergies/Adverse Reactions: codeine Allergy (Verified 07/21/19 11:14) meperidine [From Demerol] Allergy (Verified 07/21/19 11:14) Past Medical History - Social History Chew tobacco use (# tins/day): No Frequency of alcohol use: None Drug Abuse: None - Past Medical History Cardiac Medical History: Reports: Hx Hypercholesterolemia, Hx Hypertension Denies: Hx Congestive Heart Failure, Hx Coronary Artery Disease, Hx Heart Attack Past Surgical History: Reports: Hx Abdominal Surgery, Hx Appendectomy, Hx Hysterectomy Physical Exam - Vital signs Vitals: Temp Pulse Resp BP Pulse Ox 97.8 F 107 H 16 107/65 90 L 07/21/19 11:08 07/21/19 11:08 07/21/19 11:08 07/21/19 11:08 07/21/19 11:08 Course - Vital Signs Vital signs: Temp Pulse Resp BP Pulse Ox 97.8 F 107 H 16 107/65 90 L 07/21/19 11:14 07/21/19 11:14 07/21/19 11:14 07/21/19 11:14 07/21/19 11:14 Doctor's Discharge - Discharge Referrals: BALAWENDER,DANNI N, [employer]ER [Primary Care Provider] - Follow up as needed
[2019-07-21 12:02] LABS: ABSOLUTE BASOPHILS # (AUTO) 0.1 10^3/uL (0.0-0.2); ABSOLUTE LYMPHOCYTES (AUTO) 1.9 10^3/uL (0.5-4.7); ABSOLUTE MONOCYTES (AUTO) 1.5 10^3/uL (0.1-1.4); ABSOLUTE NEUT (AUTO) 12.9 10^3/uL (1.7-8.2); BASOPHILS % (AUTO) 0.5 % (0-2); EOSINOPHILS % (AUTO) 0.2 % (0-6); HEMATOCRIT 34.5 % (36.0-47.0); HEMOGLOBIN 11.3 g/dL (12.0-15.5); LYMPHOCYTES % (AUTO) 11.8 % (13-45); MEAN CORPUSCULAR HEMOGLOBIN 31.7 pg (27.0-33.4); MEAN CORPUSCULAR HGB CONC 32.8 g/dL (32.0-36.0); MEAN CORPUSCULAR VOLUME 97 fl (80-97); MONOCYTES % (AUTO) 9.1 % (3-13); PLATELET COUNT 297 10^3/uL (150-450); RED BLOOD COUNT 3.57 10^6/uL (3.72-5.28); RED CELL DISTRIBUTION WIDTH 14.6 % (11.5-14.0); SEGMENTED NEUTROPHILS % (AUTO) 78.4 % (42-78); TOTAL CELLS COUNTED % (AUTO) 100 %; WHITE BLOOD COUNT 16.4 10^3/uL (4.0-10.5)
[2019-07-21 12:28] LABS: ALBUMIN 3.6 g/dL (3.5-5.0); ALKALINE PHOSPHATASE 94 U/L (38-126); ANION GAP 11 (5-19); ASPARTATE AMINO TRANSFERASE 21 U/L (14-36); BILIRUBIN,DIRECT 0.1 mg/dL (0.0-0.4); BILIRUBIN,TOTAL 0.6 mg/dL (0.2-1.3); BLOOD UREA NITROGEN 25 mg/dL (7-20); CARBON DIOXIDE 29 mmol/L (22-30); CHLORIDE 102 mmol/L (98-107); GLUCOSE 89 mg/dL (75-110); POTASSIUM 4.6 mmol/L (3.6-5.0); TOTAL PROTEIN 6.5 g/dL (6.3-8.2)
--- NOTE | 2019-07-21 12:29 | RADIOLOGY REPORT (SQ) ---
EXAM DESCRIPTION: CHEST 2 VIEWS COMPLETED DATE/TIME: 07/21/2019 12:08 pm REASON FOR STUDY: cough and chest wall pain COMPARISON: 05/23/2019 EXAM PARAMETERS: NUMBER OF VIEWS: two views TECHNIQUE: Digital Frontal and Lateral radiographic views of the chest acquired. RADIATION DOSE: NA LIMITATIONS: none FINDINGS: LUNGS AND PLEURA: Right middle lobe infiltrate consistent with pneumonia. Small right eff usion. MEDIASTINUM AND HILAR STRUCTURES: No masses or contour abnormalities. HEART AND VASCULAR STRUCTURES: Heart normal size. No evidence for failure. BONES: No acute findings. HARDWARE: None in the chest. OTHER: No other significant finding. IMPRESSION: Right middle lobe infiltrate most likely pneumonia. Small right effusion. TECHNICAL DOCUMENTATION: JOB ID: [id number] [employer]- All Rights Reserved Reading location - IP/workstation name: [email or web address]
[2019-07-21 13:35] LABS: APPEARANCE,URINE CLEAR; BILIRUBIN,URINE NEGATIVE (NEGATIVE); COLOR,URINE YELLOW; GLUCOSE, URINE NEGATIVE (NEGATIVE); KETONES,URINE TRACE mg/dL (NEGATIVE); LEUKOCYTE ESTERASE,URINE TRACE (NEGATIVE); NITRITE,URINE NEGATIVE (NEGATIVE); PROTEIN,URINE NEGATIVE (NEGATIVE); URINE SPECIFIC GRAVITY 1.013; UROBILINOGEN,URINE NEGATIVE mg/dL (<2.0)
--- NOTE | 2019-07-21 14:21 | ER Document Report ---
ED General - General Chief Complaint: Breathing Difficulty Stated Complaint: FEVER/TROUBLE BREATHING Time Seen by Provider: 07/21/19 11:14 Primary Care Provider: DANNI SALAS RECREATIONAL FACILITIES MOTEL MANAGER [ALLIED HEALTH PROFESSIONAL] - Follow up as needed Mode of Arrival: Ambulatory Information source: Patient TRAVEL OUTSIDE OF THE [place] IN LAST 30 DAYS: No - HPI Notes: 7-year-old female with a history of RA presents to the emergency room for c omplaints of fevers of 103 for the last 3 days with a productive cough become progressively worse over the last 2 months. Patient has not been drinking or eating as much over the last 3 days. Patient has been taking Tylenol to control her fevers. The patient states is been hard to breathe on the right side, was unsure if she had pneumonia or not. In triage orders were initiated, chest x- ray did show that she has right middle lobe pneumonia with small effusion leukocytosis is 16.4 with a left shift, an acute kidney injury with creatinine of 1.75 with a BUN of 25. Denies chest pain,palpitations, shortness of breath, nausea, vomiting, diarrhea, abdominal pain, hematuria,blurred vision, double vision, loss of vision, speech changes, LH, dizziness, syncope, headaches, wheezing, ST, neck pain, weakness, bowel or bladder dysfunction, saddle anesthesia, numbness or tingling in bilateral upper or lower extremities equally, muscle paralysis, weakness in bilateral upper or lower extremities equally or rash. - Related Data Allergies/Adverse Reactions: codeine Allergy (Verified 07/21/19 11:14) meperidine [From Demerol] Allergy (Verified 07/21/19 11:14) Past Medical History - General Information source: Patient, Relative - Social History Smoking Status: Never Smoker Chew tobacco use (# tins/day): No Frequency of alcohol use: None Drug Abuse: None Family History: Reviewed & Not Pertinent Patient has suicidal ideation: No Patient has homicidal ideation: No - Past Medical History Cardiac Medical History: Reports: Hx Hypercholesterolemia, Hx Hypertension Denies: Hx Congestive Heart Failure, Hx Coronary Artery Disease, Hx Heart Attack Past Surgical History: Reports: Hx Abdominal Surgery, Hx Appendectomy, Hx Hyste rectomy - Immunizations Hx Pneumococcal Vaccination: 05/19/16 Review of Systems - Review of Systems Constitutional: See HPI, Chills, Fever EENT: No symptoms reported Cardiovascular: No symptoms reported Respiratory: See HPI, Cough Gastrointestinal: No symptoms reported Genitourinary: No symptoms reported Female Genitourinary: No symptoms reported Musculoskeletal: No symptoms reported Skin: No symptoms reported Hematologic/Lymphatic: No symptoms reported Neurological/Psychological: No symptoms reported Physical Exam - Vital signs Vitals: Temp Pulse Resp BP Pulse Ox 97.8 F 107 H 16 107/65 90 L 07/21/19 11:08 07/21/19 11:08 07/21/19 11:08 07/21/19 11:08 07/21/19 11:08 - Notes Notes: PHYSICAL EXAMINATION: reviewed vital signs by RN GENERAL: Well-appearing, well-nourished and in no acute distress. HEAD: Atraumatic, normocephalic. EYES: Pupils equal round and reactive to light, extraocular movements intact, conjunctiva are normal. ENT: Nares patent, oropharynx clear without exudates. Moist mucous membranes. NECK: Normal range of motion, supple without lymphadenopathy LUNGS: No breath sounds to right middle/lower on auscultation. dimished BS to left lower lobe. no wheezes rales or rhonchi. HEART: Regular rate and rhythm without murmurs ABDOMEN: Soft, nontender, nondistended abdomen. No guarding, no rebound. No masses appreciated. Female : deferred Musculoskeletal: Normal range of motion, no pitting or edema. No cyanosis. NEUROLOGICAL: Cranial nerves grossly intact. Normal speech, normal gait. Normal sensory, motor exams PSYCH: Normal mood, normal affect. SKIN: Warm, Dry, normal turgor, no rashes or lesions noted. Course - Re-evaluation Re-evalutation: 07/21/19 15:28 Patient is currently afebrile, slightly tachycardic and tachypneic and 96% on room air with a heart rate of 103F when she is talking, HR is 90 at rest. EKG negative for STEMI, no ST segment changes. First set of troponin negative. CBC shows a leukocytosis of 16.4 with a shift, CMP shows a creatinine of 1.75 with a BUN of 25 and acute kidney injury, liver enzymes are unremarkable, electrolytes are unremarkable as well. Chest x-ray does show a right lower lobe pneumonia with a small effusion. Urinalysis does show positive leukoesterase with ketones. she reports some urgency with urination. Will start patient on IV Rocephin and levofloxacin for PNA. Consulted with Dr. Abel Barrientos, hospitalist for admission for right middle lobe pneumonia, SRINIVASAN, leukocytosis with a shift, tachypnea and tachycardia to the medical service. Patient was agreeable this plan of care - Vital Signs Vital signs: Temp Pulse Resp BP Pulse Ox 97.8 F 107 H 22 H 107/65 90 L 07/21/19 11:14 07/21/19 11:14 07/21/19 13:13 07/21/19 11:14 07/21/19 11:14 - Laboratory Result Diagrams: 07/21/19 11:40 07/21/19 11:40 Laboratory results interpreted by me: 07/21/19 07/21/19 07/21/19 11:40 11:40 13:15 WBC 16.4 H RBC 3.57 L Hgb 11.3 L Hct 34.5 L RDW 14.6 H Lymph % (Auto) 11.8 L Absolute Neuts (auto) 12.9 H Absolute Monos (auto) 1.5 H Seg Neutrophils % 78.4 H BUN 25 H Creatinine 1.75 H Est GFR ( Amer) 34 L Est GFR (MDRD) Non-Af 28 L Urine Ketones TRACE H Ur Leukocyte Esterase TRACE H Urine Ascorbic Acid 40 H Discharge - Discharge Clinical Impression: Pneumonia, UTI (urinary tract infection), SRINIVASAN (acute kidney injury) Condition: Stable Disposition: ADMITTED INPATIENT Admitting Provider: Iliana (Hospitalist) Unit Admitted: Telemetry Referrals: DANNI SALAS, RECREATIONAL FACILITIES MOTEL MANAGER [ALLIED HEALTH PROFESSIONAL] - Follow up as needed
--- NOTE | 2019-07-21 14:27 | EKG REPORT ---
SEVERITY:- NORMAL ECG - SINUS RHYTHM : Confirmed by: Dayan Hamilton MD 21-Jul-2019 14:26:30
[2019-07-21] MEDS ORDERED: CEFTRIAXONE 1 GM/D5W RTU 1 GM/50 ML RTUPB IV ONE (14:45)
[2019-07-21] MEDS ORDERED: LEVOFLOXACIN 750 MG/D5W RTU 750 MG/150 ML RTUPB IV ONE (14:45)
[2019-07-21] MEDS: NORMAL SALINE 1000 ML 1,000 ML IV PRN ×2 (15:23→17:48)
[2019-07-21] MEDS ORDERED: IPRATROPIUM/ALBUTEROL 0.5-2.5 MG/3 ML AMPUL NEB ONE (15:26)
--- NOTE | 2019-07-21 16:16 | PDOC H&P ---
History of Present Illness Admission Date/PCP: 07/21/19 15:22 KEVNI GRIMALDO MD History of Present Illness: PARDEEP FOSTER is a 79 year old female with a history of rheumatoid arthritis comes in with a chief complaint of body aches, cough, and a subjective fever. She said she had a temperature of 103 Fahrenheit at home. I asked her if that was the result she got off thermometer, and she said "no, but that is what it felt like." Was told by the ER provider that she had been having a cough for 2 months. Patient tells me it was 2 weeks. She says she has not sought medical attention for this. She has not taken anything [id number] or prescription for it at home. This is the first time she seen a medical provider for this particular problem. She did not call her primary care doctor. She says she went to an urgent care and told him what was going on with her and they told her to come straight to the emergency department. The patient has not had any hemodynamic instability. She is on prednisone chronically for RA. She is not had a fever here. She said that she took a Tylenol before she came over here this morning because she felt hot. She had what the radiologist is calling a right middle lobe pneumonia on chest x-ray. She has no dyspnea. She had no co mplaints of any dysuria but they checked a urinalysis on her anyway for some reason. She also has a history of chronic kidney disease and her creatinine is in the typical range is been in for the last couple of years. Past Medical History Cardiac Medical History: Reports: Hyperlipidema, Hypertension Denies: Congestive Heart Failure, Coronary Artery Disease, Myocardial Infarction Past Surgical History Past Surgical History: Reports: Appendectomy, Hysterectomy Social History Smoking Status: Never Smoker Electronic Cigarette use?: No Frequency of Alcohol Use: None Hx Recreational Drug Use: No Drugs: None Hx Prescription Drug Abuse: No Family History Family History: Reviewed & Not Pertinent Parental Family History Reviewed: Yes Children Family History Reviewed: Yes Sibling(s) Family History Reviewed.: Yes Medication/Allergy Home Medications: Alprazolam [Xanax 0.25 mg Tablet] 0.25 mg PO Q8HP PRN 10/14/16 Ascorbic Acid [Vitamin C] 1,000 mg PO DAILY 10/14/16 Calcium Carbonate/Vitamin D3 [Calcium 600-Vit D3 800 Tablet] 1 tab PO DAILY 10/14/16 Chlorthalidone [Chlorthalidone 25 mg Tablet] 0.5 tab PO DAILY 10/14/16 Cholecalciferol (Vitamin D3) [Vitamin D3] 1,000 unit PO DAILY 10/14/16 Gabapentin [Neurontin] 600 mg PO Q12 10/14/16 Prednisone 5 mg PO BID 10/14/16 Simvastatin [Zocor 10 mg Tablet] 10 mg PO QHS 10/14/16 Cyanocobalamin (Vitamin B-12) [B-12] 2,500 mcg SL DAILY #30 tab.subl 10/19/16 Lisinopril [Prinivil] 10 mg PO DAILY #30 10/19/16 Ferrous Sulfate [Feosol 325 mg Tablet] 325 mg PO Q12 01/09/17 Hydroxychloroquine Sulfate [Plaquenil 200 mg Tablet] 200 mg PO DAILY 01/09/17 Ipratropium/Albuterol Sulfate [Combivent Respimat Inhal [place]] 1 puff IH Q6 01/09/17 Vit C/E/Zn/Coppr/Lutein/Zeaxan [Preservision Areds 2 Softgel] 2 cap PO DAILY 01/09/17 Allergies/Adverse Reactions: codeine Allergy (Verified 07/21/19 11:14) meperidine [From Demerol] Allergy (Verified 07/21/19 11:14) Review of Systems All systems: reviewed and no additional remarkable complaints except as stated - All systems were reviewed and were negative except as noted in the HPI Physical Exam Vital Signs: Temp Pulse Resp BP Pulse Ox 97.8 F 107 H 26 H 107/65 93 07/21/19 11:14 07/21/19 11:14 07/21/19 15:00 07/21/19 11:14 07/21/19 15:00 Intake & Output 07/20/19 07/21/19 07/22/19 06:59 06:59 06:59 Weight 69 kg General appearance: PRESENT: no acute distress, cooperative, disheveled Head exam: PRESENT: atraumatic, normocephalic Eye exam: PRESENT: EOMI, PERRLA. ABSENT: conjunctival injection, nystagmus, scleral icterus Ear exam: PRESENT: normal external ear exam Mouth exam: PRESENT: moist, neck supple Throat exam: ABSENT: post pharyngeal erythema Neck exam: PRESENT: full ROM. ABSENT: carotid bruit, JVD, lymphadenopathy, meningismus, tenderness, thyromegaly Respiratory exam: PRESENT: clear to auscultation tamir, symmetrical, unlabored. ABSENT: accessory muscle use, chest wall tenderness, crackles, prolonged expiratory phas, rhonchi, tachypnea, wheezes Cardiovascular exam: PRESENT: RRR, +S1, +S2 Pulses: PRESENT: normal carotid pulses Vascular exam: PRESENT: normal capillary refill GI/Abdominal exam: PRESENT: normal bowel sounds, soft. ABSENT: distended, guarding, rebound, tenderness Extremities exam: ABSENT: clubbing, pedal edema Musculoskeletal exam: PRESENT: normal inspection. ABSENT: deformity Neurological exam: PRESENT: alert, awake, oriented to person, oriented to place, oriented to time, oriented to situation, CN II-XII grossly intact. ABSENT: motor sensory deficit Psychiatric exam: PRESENT: appropriate affect, normal mood Skin exam: PRESENT: dry, warm Results Laboratory Results: 07/21/19 11:40 07/21/19 11:40 07/21/19 07/21/19 07/21/19 11:40 11:40 13:15 WBC 16.4 H RBC 3.57 L Hgb 11.3 L Hct 34.5 L MCV 97 MCH 31.7 MCHC 32.8 RDW 14.6 H Plt Count 297 Seg Neutrophils % 78.4 H Sodium 142.4 Potassium 4.6 Chloride 102 Carbon Dioxide 29 Anion Gap 11 BUN 25 H Creatinine 1.75 H Est GFR ( Amer) 34 L Glucose 89 Calcium 9.0 Total Bilirubin 0.6 AST 21 Alkaline Phosphatase 94 Total Protein 6.5 Albumin 3.6 Urine Color YELLOW Urine Appearance CLEAR Urine pH 5.0 Ur Specific Nolan 1.013 Urine Protein NEGATIVE Urine Glucose (UA) NEGATIVE Urine Ketones TRACE H Urine Blood NEGATIVE Urine Nitrite NEGATIVE Ur Leukocyte Esterase TRACE H Urine WBC (Auto) 2 07/21/19 11:40 Troponin I < 0.012 Impressions: Chest X-Ray 07/21/19 11:24 IMPRESSION: Right middle lobe infiltrate most likely pneumonia. Small right effusion. Assessment and Plan - Diagnosis (1) Community acquired pneumonia Qualifiers: Laterality: right Lung location: middle lobe of lung Qualified Code(s): J18.9 - Pneumonia, unspecified organism Is this a current diagnosis for this admission?: Yes Plan: Radiologist is calling it a right middle lobe pneumonia. Her lung exam is normal. She has not received any outpatient treatment. She has some Levaquin in the ER. Because of her chronic kidney disease I will continue her on Rocephin and azithromycin. I do not think she is going to be in the hospital very long. (2) Stage III chronic kidney disease Is this a current diagnosis for this admission?: Yes Plan: Her creatinine is not elevated above her baseline. Her creatinine has been in this range for at least the last 2 years. (3) Rheumatoid arthritis Qualifiers: Rheumatoid arthritis location: multiple sites Rheumatoid factor presence: unspecified presence Qualified Code(s): M06.9 - Rheumatoid arthritis, unspecified Is this a current diagnosis for this admission?: Yes Plan: We will continue her home medications. - Time Time Spent with patient: 35 or more minutes
[2019-07-21] MEDS: ACETAMINOPHEN 325 MG TABLET PO PRN (22:40)
[2019-07-21] MEDS: HEPARIN SOD (PORCINE) 5,000 UNIT/ML 1 ML VIAL SUBCUT SCH (22:41)
[2019-07-22 05:37] LABS: HEMATOCRIT 28.2 % (36.0-47.0); HEMOGLOBIN 9.5 g/dL (12.0-15.5); MEAN CORPUSCULAR HEMOGLOBIN 32.1 pg (27.0-33.4); MEAN CORPUSCULAR HGB CONC 33.6 g/dL (32.0-36.0); MEAN CORPUSCULAR VOLUME 96 fl (80-97); PLATELET COUNT 253 10^3/uL (150-450); RED BLOOD COUNT 2.95 10^6/uL (3.72-5.28); RED CELL DISTRIBUTION WIDTH 14.5 % (11.5-14.0); WHITE BLOOD COUNT 10.3 10^3/uL (4.0-10.5)
[2019-07-22] MEDS: HEPARIN SOD (PORCINE) 5,000 UNIT/ML 1 ML VIAL SUBCUT SCH ×2 (05:37→15:47)
[2019-07-22 05:55] LABS: ANION GAP 11 (5-19); BLOOD UREA NITROGEN 22 mg/dL (7-20); CARBON DIOXIDE 24 mmol/L (22-30); CHLORIDE 105 mmol/L (98-107); GLUCOSE 80 mg/dL (75-110); POTASSIUM 3.9 mmol/L (3.6-5.0)
[2019-07-22] MEDS ORDERED: AZITHROMYCIN 500 MG in DEXTROSE 5%-WATER 250 ML IV SCH (10:00)
[2019-07-22] MEDS: ACETAMINOPHEN 325 MG TABLET PO PRN (16:57)
[2019-07-22 17:11] VITALS: BP 145/59
--- NOTE | 2019-07-22 17:59 | PDOC DISCHARGE SUMMARY ---
Impression - Admit/DC Date/PCP Admission Date/Primary Care Provider: 07/21/19 15:22 KEVIN GRIMALDO MD Discharge Date: 07/22/19 - Discharge Diagnosis (1) Community acquired pneumonia Is this a current diagnosis for this admission?: Yes (2) Stage III chronic kidney disease Is this a current diagnosis for this admission?: Yes (3) Rheumatoid arthritis Is this a current diagnosis for this admission?: Yes - Additional Information Resuscitation Status: Full Code Discharge Diet: Cardiac Discharge Activity: Activity As Tolerated, Balance Activity w/Rest Referrals: KEVIN GRIMALDO MD [Primary Care Provider] - 07/31/19 11:00 am (2-5 days for hospital follow-up. First available appt. if any cancellations office will notify patient.) Prescriptions: Azithromycin 500 mg PO DAILY #4 tablet Cefdinir 300 mg PO BID #12 capsule Ondansetron [Zofran Odt 4 mg Tablet] 4 mg PO Q4HP PRN #30 tab.rapdis PRN Reason: Home Medications: Albuterol Sulfate [Proair HFA Inhalation Aerosol 8.5 gm MDI] 1 puff IH QIDP PRN 07/21/19 Alprazolam [Xanax 0.25 mg Tablet] 0.25 mg PO QHS 07/21/19 Ascorbic Acid [Vitamin C] 1,000 mg PO DAILY 07/21/19 Chlorthalidone [Hygroton 25 mg Tablet] 25 mg PO DAILY 07/21/19 Cholecalciferol (Vitamin D3) [Vitamin D3 5000 unit Capsule] 5,000 unit PO DAILY 07/21/19 Gabapentin [Neurontin] 600 mg PO Q12 07/21/19 Hydroxychloroquine Sulfate [Plaquenil 200 mg Tablet] 200 mg PO DAILY 07/21/19 Lisinopril [Prinivil] 20 mg PO DAILY 07/21/19 Prednisone [Deltasone 5 mg Tablet] 5 mg PO DAILY 07/21/19 Simvastatin [Zocor 10 mg Tablet] 10 mg PO QHS 07/21/19 Vit C/E/Zn/Coppr/Lutein/Zeaxan [Preservision Areds 2 Softgel] 1 each PO BID 07/21/19 Azithromycin 500 mg PO DAILY #4 tablet 07/22/19 Cefdinir 300 mg PO BID #12 capsule 07/22/19 Ondansetron [Zofran Odt 4 mg Tablet] 4 mg PO Q4HP PRN #30 tab.rapdis 07/22/19 History of Present Illiness History of Present Illness: PARDEEP FOSTER is a 79 year old female with a history of rheumatoid arthritis comes in with a chief complaint of body aches, cough, and a subjective fever. She said she had a temperature of 103 Fahrenheit at home. I asked her if that was the result she got off thermometer, and she said "no, but that is what it felt like." Was told by the ER provider that she had been having a cough for 2 months. Patient tells me it was 2 weeks. She says she has not sought medical attention for this. She has not taken anything [id number] or prescription for it at home. This is the first time she seen a medical provider for this particular problem. She did not call her primary care doctor. She says she went to an urgent care and told him what was going on with her and they told her to come straight to the emergency department. The patient has not had any hemodynamic instability. She is on prednisone chronically for RA. She is not had a fever here. She said that she took a Tylenol before she came over here this morning because she felt hot. She had what the radiologist is calling a right middle lobe pneumonia on chest x-ray. She has no dyspnea. She had no complaints of any dysuria but they checked a urinalysis on her anyway for some reason. She also has a history of chronic kidney disease and her creatinine is in the typical range is been in for the last couple of years. Hospital Course Hospital Course: She improved fairly quickly on Rocephin and Zithromax. She was able to get up independently and ambulate about 100 feet without any assistance. After ambu lation, her SPO2 on room air was 97%. She was feeling good and anxious to go home. She has family support at home. She will finish up a course of cefdinir and azithromycin at home. Her labs and examination were reassuring and she was discharged in good condition. Physical Exam Vital Signs: Temp Pulse Resp BP Pulse Ox 99.5 F 100 18 145/59 H 95 07/22/19 17:29 07/22/19 17:29 07/22/19 17:29 07/22/19 17:29 07/22/19 17:29 Intake & Output 07/21/19 07/22/19 07/23/19 06:59 06:59 06:59 Intake Total 2200 662 Balance 2200 662 Weight 70.2 kg 70.2 kg General appearance: PRESENT: no acute distress, cooperative, disheveled Respiratory exam: PRESENT: Crackles right mid lung, symmetrical, unlabored. ABSENT: accessory muscle use, chest wall tenderness, prolonged expiratory phas, rhonchi, tachypnea, wheezes Cardiovascular exam: PRESENT: RRR, +S1, +S2 Pulses: PRESENT: normal carotid pulses Vascular exam: PRESENT: normal capillary refill GI/Abdominal exam: PRESENT: normal bowel sounds, soft. ABSENT: distended, guarding, rebound, tenderness Extremities exam: ABSENT: clubbing, pedal edema Musculoskeletal exam: PRESENT: Ambulatory, normal inspection. ABSENT: deformity Neurological exam: PRESENT: alert, awake, oriented to person, oriented to place, oriented to time, oriented to situation Psychiatric exam: PRESENT: appropriate affect, normal mood Skin exam: PRESENT: dry, warm Results Laboratory Results: WBC 10.3 10^3/uL (4.0-10.5) 07/22/19 05:13 RBC 2.95 10^6/uL (3.72-5.28) L 07/22/19 05:13 Hgb 9.5 g/dL (12.0-15.5) L 07/22/19 05:13 Hct 28.2 % (36.0-47.0) L 07/22/19 05:13 MCV 96 fl (80-97) 07/22/19 05:13 MCH 32.1 pg (27.0-33.4) 07/22/19 05:13 MCHC 33.6 g/dL (32.0-36.0) 07/22/19 05:13 RDW 14.5 % (11.5-14.0) H 07/22/19 05:13 Plt Count 253 10^3/uL (150-450) 07/22/19 05:13 Lymph % (Auto) 11.8 % (13-45) L 07/21/19 11:40 [place] % (Auto) 9.1 % (3-13) 07/21/19 11:40 Eos % (Auto) 0.2 % (0-6) 07/21/19 11:40 Baso % (Auto) 0.5 % (0-2) 07/21/19 11:40 Absolute Neuts (auto) 12.9 10^3/uL (1.7-8.2) H 07/21/19 11:40 Absolute Lymphs (auto) 1.9 10^3/uL (0.5-4.7) 07/21/19 11:40 Absolute Monos (auto) 1.5 10^3/uL (0.1-1.4) H 07/21/19 11:40 Absolute Eos (auto) 0.0 10^3/uL (0.0-0.6) 07/21/19 11:40 Absolute Basos (auto) 0.1 10^3/uL (0.0-0.2) 07/21/19 11:40 Seg Neutrophils % 78.4 % (42-78) H 07/21/19 11:40 Sodium 139.6 mmol/L (137-145) 07/22/19 05:13 Potassium 3.9 mmol/L (3.6-5.0) 07/22/19 05:13 Chloride 105 mmol/L (98-107) 07/22/19 05:13 Carbon Dioxide 24 mmol/L (22-30) 07/22/19 05:13 Anion Gap 11 (5-19) 07/22/19 05:13 BUN 22 mg/dL (7-20) H 07/22/19 05:13 Creatinine 1.61 mg/dL (0.52-1.25) H 07/22/19 05:13 Est GFR ( Amer) 37 (>60) L 07/22/19 05:13 Est GFR (MDRD) Non-Af 31 (>60) L 07/22/19 05:13 Glucose 80 mg/dL (75-110) 07/22/19 05:13 Lactic Acid (Sepsis) 1.0 mmol/L (0.7-2.1) 07/21/19 15:58 Calcium 8.0 mg/dL (8.4-10.2) L 07/22/19 05:13 Total Bilirubin 0.6 mg/dL (0.2-1.3) 07/21/19 11:40 Direct Bilirubin 0.1 mg/dL (0.0-0.4) 07/21/19 11:40 Neonat Total Bilirubin Not Reportable 07/21/19 11:40 Neonat Direct Bilirubin Not Reportable 07/21/19 11:40 Neonat Indirect Bili Not Reportable 07/21/19 11:40 AST 21 U/L (14-36) 07/21/19 11:40 ALT 14 U/L (<35) 07/21/19 11:40 Alkaline Phosphatase 94 U/L (38-126) 07/21/19 11:40 Troponin I < 0.012 ng/mL 07/21/19 15:58 Total Protein 6.5 g/dL (6.3-8.2) 07/21/19 11:40 Albumin 3.6 g/dL (3.5-5.0) 07/21/19 11:40 Urine Color YELLOW 07/21/19 13:15 Urine Appearance CLEAR 07/21/19 13:15 Urine pH 5.0 (5.0-9.0) 07/21/19 13:15 Ur Specific [place] 1.013 07/21/19 13:15 Urine Protein NEGATIVE mg/dL (NEGATIVE) 07/21/19 13:15 Urine Glucose (UA) NEGATIVE mg/dL (NEGATIVE) 07/21/19 13:15 Urine Ketones TRACE mg/dL (NEGATIVE) H 07/21/19 13:15 Urine Blood NEGATIVE (NEGATIVE) 07/21/19 13:15 Urine Nitrite NEGATIVE (NEGATIVE) 07/21/19 13:15 Urine Bilirubin NEGATIVE (NEGATIVE) 07/21/19 13:15 Urine Urobilinogen NEGATIVE mg/dL (<2.0) 07/21/19 13:15 Ur Leukocyte Esterase TRACE (NEGATIVE) H 07/21/19 13:15 Urine WBC (Auto) 2 /HPF 07/21/19 13:15 U Hyaline Cast (Auto) 4 /LPF 07/21/19 13:15 Squamous Epi Cells Auto 1 /HPF 07/21/19 13:15 Urine Mucus (Auto) RARE /LPF 07/21/19 13:15 Urine Ascorbic Acid 40 (NEGATIVE) H 07/21/19 13:15 07/21/19 07/21/19 11:40 15:58 Troponin I < 0.012 < 0.012 Impressions: Chest X-Ray 07/21/19 11:24 IMPRESSION: Right middle lobe infiltrate most likely pneumonia. Small right effusion. Plan Time Spent: Greater than 30 Minutes Stroke Is this a Stroke Patient?: No Acute Heart Failure - Is this a Heart Failure Patient?: No
[2019-07-22] MEDS ORDERED: CEFTRIAXONE 1 GM/D5W RTU 1 GM/50 ML RTUPB IV SCH (18:00)
== END 2019-07-22 18:09 | disposition home or self-care (01) ==
LOC: ER 11:02 → INTOOBSV 15:22 → EH 15:22 → 4S 22:12
PROVIDERS: ADMIT Family Medicine; ATTEND Family Medicine
DX: J18.1 Lobar pneumonia, unspecified organism (principal); N18.3 Chronic kidney disease, stage 3 (moderate); N17.9 Acute kidney failure, unspecified; M06.89 Other specified rheumatoid arthritis, multiple sites; E78.5 Hyperlipidemia, unspecified; I12.9 Hypertensive chronic kidney disease with stage 1 through stage 4 chronic kidney disease, or unspecified chronic kidney disease; R00.0 Tachycardia, unspecified; R06.82 Tachypnea, not elsewhere classified; N39.0 Urinary tract infection, site not specified; Z79.899 Other long term (current) drug therapy; Z79.52 Long term (current) use of systemic steroids
CPT/HCPCS: 93005; 99285; 36415 ×2; 87040; 87086; 85025; 85027; 80048; 80053; 81001; 84484; 83605; 71046; 93010; G0378 ×3; A9270 ×3; J1644 ×2; J7060; J7030; J0456; J0696; J1956; J7620